=== PATIENT | female | born 1965 | race Two or more races ===

== ENCOUNTER 2021-11-17 11:48 | Outpatient (REF) | payer MEDICAID, SELFPAY ==
--- NOTE | ~2021-11-17 | MM_ITS ---
EXAMINATION: MM SCREENING DIGITAL BREAST TOMOSYNTHESIS, BILATERAL CLINICAL INFORMATION: Screening. Asymptomatic. The lifetime risk of breast cancer based on the Tyrer-Cuzick Model is 6%. COMPARISON: Mammography: 07/18/2018, 07/10/2017, 05/12/2016, 02/02/2015. TECHNIQUE: Digital breast tomosynthesis is performed in both the craniocaudal and mediolateral oblique views along with computer-aided detection (CAD). Synthesized 2D images are generated from the tomosynthesis. FINDINGS: There are scattered areas of fibroglandular density (ACR BI-RADS breast composition Category b). Breast tissue composition is slightly decreased overall from prior exams. There is no architectural abnormality or abnormal calcification. Macrolobulated mass posterior 6:00 right breast and small oval nodule central 6:00 right breast are stable. No developing density. The axilla and skin contours are unremarkable. MM/MM tomosynthesis screening BI IMPRESSION: No significant changes from prior studies ASSESSMENT: BI-RADS 2: Benign RECOMMENDATION: Routine annual mammography screening. This patient's information was entered into a reminder system with a target due date for their next mammogram.
== END 2021-11-17 11:49 | disposition home or self-care (01) ==
LOC: HO.MAMMO 11:48
PROVIDERS: Visit Provider Registered Nurse
DX: Z12.31 Encounter for screening mammogram for malignant neoplasm of breast (principal)
CPT/HCPCS: 77063; 77067

== ENCOUNTER 2022-11-23 11:10 | Outpatient (REF) | payer MEDICAID, SELFPAY ==
--- NOTE | ~2022-11-23 | MM_ITS ---
EXAMINATION: MM SCREENING DIGITAL BREAST TOMOSYNTHESIS, BILATERAL CLINICAL INFORMATION: Screening. Asymptomatic. The lifetime risk of breast cancer based on the Tyrer-Cuzick Model is 5%. COMPARISON: Mammography: 11/17/2021, 07/18/2018, 07/10/2017, 05/12/2016 TECHNIQUE: Digital breast tomosynthesis is performed in both the craniocaudal and mediolateral oblique views along with computer-aided detection (CAD). Synthesized 2D images are generated from the tomosynthesis. FINDINGS: There are scattered areas of fibroglandular density (ACR BI-RADS breast composition Category b). Parenchymal pattern is similar to prior studies and there is no developing density or interval mass or architectural abnormality. No abnormal calcifications. The macrolobulated smooth nodule posterior 6:00 right breast is stable. Smaller oval satellite nodule central 6:00 right breast appears decreased. The axilla and skin contours are unremarkable. No significant changes. MM/MM tomosynthesis screening BI IMPRESSION: No significant changes from prior exams. ASSESSMENT: BI-RADS 2: Benign RECOMMENDATION: Routine annual mammography screening. This patient's information was entered into a reminder system with a target due date for their next mammogram.
== END 2022-11-23 11:11 | disposition home or self-care (01) ==
LOC: HO.MAMMO 11:10
PROVIDERS: Visit Provider Registered Nurse
DX: Z12.31 Encounter for screening mammogram for malignant neoplasm of breast (principal)
CPT/HCPCS: 77063; 77067

== ENCOUNTER 2024-01-11 08:36 | Outpatient (REF) | payer MEDICAID, SELFPAY | END 2024-01-11 08:37 | disposition home or self-care (01) | LOC: HO.MAMMO 08:36 | PROVIDERS: PCP Registered Nurse; Visit Provider Registered Nurse | DX: Z12.31 Encounter for screening mammogram for malignant neoplasm of breast (principal) | CPT/HCPCS: 77063; 77067 ==

== ENCOUNTER → 2024-01-11 09:00 | Outpatient (BNV) | payer MEDICAID, SELFPAY | PROVIDERS: PCP Registered Nurse; Visit Provider Radiology Diagnostic Radiology | DX: Z12.31 Encounter for screening mammogram for malignant neoplasm of breast (principal) | CPT/HCPCS: 77063; 77067 ==

== ENCOUNTER 2024-04-24 10:06 | Outpatient (AMB) | payer MEDICAID, SELFPAY ==
[2024-04-24 10:12] VITALS: BP 111/62; PULSE 73; O2SAT 100; BMI 24.0
--- NOTE | 2024-04-24 10:12 | MHC.OFFVIS ---
Vital Signs 04/24/24 10:12 Height 5 ft 3 in Weight 135 lb 9.349 oz BMI 24.0 BP 111/62 Blood Pressure Location Lt brachial Position Sitting Pulse 73 Pulse Source Doppler Pulse Oximetry (%) 100 Oxygen Delivery Method Room Air Intake Visit Reasons: COPD Medical Director Required: Yes Medical Director Name: Antonia Parker Kevin Allergies No Known Allergies Allergy (Verified 04/24/24 10:18) HPI HPI COPD: Details: 58-year-old lady, lifetime nonsmoker, with significant secondhand smoke exposure and underlying asthma referred for evaluation management. Patient states that she has been using Advair and Spiriva Respimat with suboptimal control of his symptoms. She complains of intermittent dyspnea on exertion. She denies underlying family history of lung disease. 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 She denies experiencing environmental allergies. [facility] Social History Household Members: Spouse Alcohol intake: never Patient Tobacco Use Status: Never used Tobacco Review of Systems Const Denies daytime sleepiness, Denies excessive sweating, Denies fatigue, Denies fever(s), Denies lethargy, Denies malaise, Denies night sweats, Denies snoring and Denies weight loss Eyes Denies blurry vision and Denies itchy eyes ENT Denies nasal congestion, Denies post nasal drip, Denies sinus pain, Denies sinus pressure and Denies other ( Thrush) Card Denies chest pain, Denies pedal edema, Denies dyspnea, Denies orthopnea and Denies paroxysmal nocturnal dyspnea Resp Denies cough, Denies hemoptysis, Denies excessive phlegm production, Denies dyspnea, Denies snoring and Denies wheezing GI Denies abdominal pain and Denies heartburn Musc Denies myalgias, Denies arthralgias and Denies joint swelling Skin/Breast Denies rash Neuro Denies memory loss and Denies seizure-like activity Psych Denies abnormal sleep pattern, Denies anxiety and Denies memory loss Endo Denies excessive sweating, Denies fatigue and Denies heat intolerance Xavier/Lymph Denies easy bruising Aller/Immun Denies itchy eyes, Denies seasonal rhinorrhea and Denies wheezing Physical Exam Vital Signs: Last Vital Signs Pulse 73 04/24/24 10:12 BP 111/62 04/24/24 10:12 Pulse Ox 100 04/24/24 10:12 Oxygen Delivery Method Room Air 04/24/24 10:12 BMI result Body Mass Index 24.0 Const General: no acute distress and alert Nutritional Appearance: not obese Orientation/consciousness: Other orientation findings ( oriented) HEENT Head: Yes atraumatic Eyes General: appearance normal, both eyes and all related structures Sclerae: sclerae normal EOM: EOMs intact bilaterally Neck Neck: Yes supple Lymphatic: no lymphadenopathy noted Resp Effort & Inspection: normal respiratory effort and no use of accessory muscles Auscultation: clear to auscultation bilaterally Cardio Rate: regular rate Rhythm: regular rhythm Heart sounds: no gallops, no murmurs and no rubs Skin General skin exam: other ( warm) Extrem General: No clubbing, No cyanosis and No edema Assessment & Plan Assessment & Plan (1) Asthma-COPD overlap syndrome: Code(s): J44.89 - Other specified chronic obstructive pulmonary disease Category: Medical Plan: Likely underlying asthma/COPD overlap syndrome with suboptimal control on acute using regimen including Spiriva Respimat, Advair, and albuterol MDI/nebs. Will obtain full PFT. (2) Dyspnea on exertion: Code(s): R06.09 - Other forms of dyspnea Category: Medical Plan: Unclear etiology at this time, may have multifactorial origin. Will proceed with initial pulmonary evaluation, however will consider further cardiac evaluation if initial workup is unrevealing. Orders: Orders XR chest 2V Today J45.909 - Unspecified asthma, uncomplicated PFT pulmonary function test Today J45.909 - Unspecified asthma, uncomplicated Coding Level of Care Code New Pt Level 4 (59792) Diagnoses Asthma-COPD overlap syndrome J44.89 Dyspnea on exertion R06.09
== END 2024-04-24 10:36 | disposition home or self-care (01) ==
PROVIDERS: PCP Registered Nurse; Referring Provider Registered Nurse; Visit Provider Internal Medicine Pulmonary Disease
DX: J44.89 Other specified chronic obstructive pulmonary disease (principal); R06.09 Other forms of dyspnea
CPT/HCPCS: 99204

== ENCOUNTER 2024-04-24 10:06 | Outpatient (REF) | payer MEDICAID, SELFPAY ==
--- NOTE | ~2024-04-24 | XR_ITS ---
EXAMINATION: XR CHEST CLINICAL INFORMATION: Unspecified asthma COMPARISON: 08/25/2016 TECHNIQUE: 2 views of the chest were obtained. FINDINGS: The lungs are well-inflated. Dextroscoliosis of the thoracolumbar spine with multilevel degenerative changes. Heart size within normal limits. There is no gross pneumothorax. No pleural effusion. No focal consolidation. XR/XR chest 2V IMPRESSION: No evidence of pneumonia. Electronically signed by: Elizabeth Salinas MD 05/13/2024 10:19 AM EDT
== END 2024-04-24 10:07 | disposition home or self-care (01) ==
LOC: HO.XRAY 10:06
PROVIDERS: PCP Registered Nurse; Referring Provider Registered Nurse; Visit Provider Internal Medicine Pulmonary Disease
DX: J44.89 Other specified chronic obstructive pulmonary disease (principal); R06.09 Other forms of dyspnea
CPT/HCPCS: 71046; 99202

== ENCOUNTER 2024-05-15 18:38 | Outpatient (REF) | payer MEDICAID, SELFPAY ==
[2024-05-17 16:47] LABS: HPV mRNA E6/E7 Not Detected (Not Detected)
[2024-05-21 12:11] LABS: C. trachomatis RNA TMA NOT DETECTED; N. gonorrhoeae RNA TMA NOT DETECTED
[2024-05-30 12:30] LABS: Trichomonas (NAAT) NOT DETECTED
== END 2024-05-15 18:39 | disposition home or self-care (01) ==
LOC: HO.HHCLNP 18:38
PROVIDERS: Visit Provider Advanced Practice Midwife
DX: Z12.4 Encounter for screening for malignant neoplasm of cervix (principal); Z11.3 Encounter for screening for infections with a predominantly sexual mode of transmission
CPT/HCPCS: 36415; 87491; 87591; 87624; 87661; 88175

== ENCOUNTER → 2024-06-19 10:17 | Outpatient (BNVA) | payer MEDICAID, SELFPAY | PROVIDERS: PCP Registered Nurse; Visit Provider Internal Medicine Pulmonary Disease ==

== ENCOUNTER 2024-07-24 09:23 | Outpatient (REF) | payer MEDICAID, SELFPAY ==
--- NOTE | 2024-07-24 09:29 | PFT_ITS ---
Flows: FEV1: 75 % of predicted at 1.85 L FVC: 95 % of predicted at 2.97 L FEV1/FVC: 62 % Bronchodilator response: Absent Volumes: Total lung capacity: 101 % of predicted at 5.02 L Residual volume: 127 % of predicted at 2.05 L Slow vital capacity: 88 % of predicted at 2.97 L Expiratory reserve volume: 68 % of predicted at 0.57 L Diffusion capacity: Normal Impression: Moderate obstructive ventilatory defect with no bronchodilator response. Increased residual volume suggests air trapping. MTDD
[2024-07-24 11:54] VITALS: PULSE 77; O2SAT 99
== END 2024-07-24 09:24 | disposition home or self-care (01) ==
LOC: HO.RESP 09:23
PROVIDERS: PCP Registered Nurse; Visit Provider Internal Medicine Pulmonary Disease
DX: J45.909 Unspecified asthma, uncomplicated (principal)
CPT/HCPCS: 94010; 94640; 94727; 94729

== ENCOUNTER → 2024-07-24 09:29 | Outpatient (BNV) | payer MEDICAID, SELFPAY | PROVIDERS: PCP Registered Nurse; Visit Provider Internal Medicine Pulmonary Disease | DX: J45.909 Unspecified asthma, uncomplicated (principal) | CPT/HCPCS: 94060; 94727; 94729 ==

== ENCOUNTER 2024-08-01 09:50 | Outpatient (AMB) | payer MEDICAID, SELFPAY ==
--- NOTE | 2024-08-01 09:58 | A.OFFVIS_ITS ---
Vital Signs 08/01/24 09:59 Height 5 ft 3 in Weight 137 lb 12.623 oz BMI 24.4 BP 138/72 Blood Pressure Location Rt brachial Position Sitting Pulse 76 Pulse Source Doppler Pulse Oximetry (%) 98 Oxygen Delivery Method Room Air Intake Visit Reasons: Asthma Deputy Sheriff Chief Required: Yes Deputy Sheriff Chief Name: Antonia Parker Coy Marcial Allergies No Known Allergies Allergy (Verified 08/01/24 10:01) HPI HPI Asthma: Details: 58-year-old lady, lifetime nonsmoker, with significant secondhand smoke exposure and underlying asthma referred for evaluation management. Patient states that she has been using Advair and Spiriva Respimat with reasonable control of her symptoms. She complains of intermittent dyspnea on exertion. She denies underlying family history of lung disease. 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 She denies experiencing environmental allergies. As last office visit patient completed her pulmonary function test showed underlying moderate COPD. She denies any recent exacerbations. [facility] Social History Household Members: Spouse Alcohol intake: never Patient Tobacco Use Status: Never used Tobacco Review of Systems Const Denies daytime sleepiness, Denies excessive sweating, Denies fatigue, Denies fever(s), Denies lethargy, Denies malaise, Denies night sweats, Denies snoring and Denies weight loss Eyes Denies blurry vision and Denies itchy eyes ENT Denies nasal congestion, Denies post nasal drip, Denies sinus pain, Denies sinus pressure and Denies other ( Thrush) Card Denies chest pain, Denies pedal edema, Denies dyspnea, Denies orthopnea and Denies paroxysmal nocturnal dyspnea Resp Denies cough, Denies hemoptysis, Denies excessive phlegm production, Denies dyspnea, Denies snoring and Denies wheezing GI Denies abdominal pain and Denies heartburn Musc Denies myalgias, Denies arthralgias and Denies joint swelling Skin/Breast Denies rash Neuro Denies memory loss and Denies seizure-like activity Psych Denies abnormal sleep pattern, Denies anxiety and Denies memory loss Endo Denies excessive sweating, Denies fatigue and Denies heat intolerance Xavier/Lymph Denies easy bruising Aller/Immun Denies itchy eyes, Denies seasonal rhinorrhea and Denies wheezing Physical Exam Vital Signs: Last Vital Signs Pulse 76 08/01/24 09:59 BP 138/72 08/01/24 09:59 Pulse Ox 98 08/01/24 09:59 Oxygen Delivery Method Room Air 08/01/24 09:59 BMI result Body Mass Index 24.4 Const General: no acute distress and alert Nutritional Appearance: not obese Orientation/consciousness: Other orientation findings ( oriented) HEENT Head: Yes atraumatic Eyes General: appearance normal, both eyes and all related structures Sclerae: sclerae normal EOM: EOMs intact bilaterally Neck Neck: Yes supple Lymphatic: no lymphadenopathy noted Resp Effort & Inspection: normal respiratory effort and no use of accessory muscles Auscultation: clear to auscultation bilaterally Cardio Rate: regular rate Rhythm: regular rhythm Heart sounds: no gallops, no murmurs and no rubs Skin General skin exam: other ( warm) Extrem General: No clubbing, No cyanosis and No edema Assessment & Plan Assessment & Plan (1) Asthma-COPD overlap syndrome: Code(s): J44.89 - Other specified chronic obstructive pulmonary disease Category: Medical Plan: Results of pulmonary function test reviewed, underlying moderate asthma/COPD overlap syndrome now reasonably controlled on current regimen of high-dose Advair and Spiriva with albuterol MDI/nebs as needed. Continue current regimen. Coding Level of Care Code Est Pt Level 3 (22111) Diagnoses Asthma-COPD overlap syndrome J44.89
[2024-08-01 09:59] VITALS: BP 138/72; PULSE 76; O2SAT 98; BMI 24.4
== END 2024-08-01 10:11 | disposition home or self-care (01) ==
PROVIDERS: PCP Registered Nurse; Visit Provider Internal Medicine Pulmonary Disease
DX: J44.89 Other specified chronic obstructive pulmonary disease (principal)
CPT/HCPCS: 99213

== ENCOUNTER → 2024-08-01 09:50 | Outpatient (BNVA) | payer MEDICAID, SELFPAY | PROVIDERS: PCP Registered Nurse; Visit Provider Internal Medicine Pulmonary Disease | DX: J44.89 Other specified chronic obstructive pulmonary disease (principal) | CPT/HCPCS: 99212 ==

== ENCOUNTER 2025-03-07 10:33 | Outpatient (REF) | payer MEDICAID, SELFPAY ==
--- OUTSIDE RECORDS SUMMARY | 2025-03-07 11:04 | XMS_ITS | Encounter Summary ---
Author Organization [employer] Address [address] [facility] [address] [place] [address] Care Team Providers Care Bonding Supervisor Name Role Phone Mirella Morales Primary Care Provider [phone] Encounter Details Date Type Department Care Team (Late Contact Info) Description 01/02/[address] [facility] [address] [place], [place] [phone] Mirella Morales FNP [address] [place], [place] [phone] Social History Tobacco Use Types Packs/Day Years Used Date Smoking Tobacco: Never Assessed Comments Unknown Sex and Gender Information Value Date Recorded Sex Assigned at Female 06/20/2022 10:16 AM EDT Legal Sex Female 10:16 AM EDT Gender Identity Female 06/20/2022 10:16 AM EDT Sexual Orientation Straight 06/20/2022 10 :16 AM EDT COVID-19 Exposure Response Date Recorded In the last 10 days, have yo u been in contact with someone who was confirmed or suspected to have Coronavirus/COVID-19? No / Unsure 01/02/2023 12:44 PM EDT documented as of this encounter Plan of Treatment Upcoming Encounters Date Type Department Care Team (Late st Contact Info) Description 05/07/2025 9:00 AM EDT Office Visit [facility] [address] [place], [place] [phone] Mirella Morales FNP [address] [place], [place] [phone] documented as of this encounter Procedures Procedure Name Priority Date/Time Associated Diagnosis Comments HM PAP/HPV Routine 09/05/2018 12:00 AM EST documented in this encounter Results * Hm Pap Smear (09/05/2018 12:00 AM EST) us Historical Provider HEALTH MAINTENANCE Final Result documented in this encounter Visit Diagnoses Not on filedocumented in this encounter Care Teams Bonding Supervisor Relationship Specialty Start Date End Date Mirella Morales FNP [address] [place] [phone] PCP - General Family Medicine 06/11/21 documented as of this encounter
== END 2025-03-07 10:34 | disposition home or self-care (01) ==
LOC: HO.MAMMO 10:33
PROVIDERS: PCP Registered Nurse; Visit Provider Registered Nurse
DX: Z12.31 Encounter for screening mammogram for malignant neoplasm of breast (principal)
CPT/HCPCS: 77063; 77067

== ENCOUNTER → 2025-03-07 11:15 | Outpatient (BNV) | payer MEDICAID, SELFPAY | PROVIDERS: PCP Registered Nurse; Visit Provider Internal Medicine | DX: Z12.31 Encounter for screening mammogram for malignant neoplasm of breast (principal) | CPT/HCPCS: 77063; 77067 ==

== ENCOUNTER 2025-03-20 08:36 | Outpatient (REF) | payer MEDICAID, SELFPAY ==
--- OUTSIDE RECORDS SUMMARY | 2025-03-20 08:45 | XMS_ITS | Encounter Summary ---
Author Organization [employer] Address [address] [facility] [address] [place] [address] Care Team Providers Care Intelligence Intern Name Role Phone Mirella Morales Primary Care Provider [phone] Encounter Details Date Type Department Care Team (Late Contact Info) Description 01/02/2023 Abstract [facility] [address] [place], [place] [phone] Mirella Morales FNP [address] [place], [place] [phone] Social History Tobacco Use Types Packs/Day Years [...] Description 05/07/2025 9:00 AM EDT Office Visit [facility] [address] [place], [place] [phone] Mirella Morales FNP [address] [place], [place] [phone] documented as of this encounter Procedures Procedure Name Priority Date/Time Associated Diagnosis Comments HM PAP/HPV Routine 09/05/2018 12:00 AM EST documented in this encounter Results * Hm Pap Smear (09/05/2018 12:00 AM EST) us Historical Provider HEALTH MAINTENANCE Final Result documented in this encounter Visit Diagnoses Not on filedocumented in this encounter Care Teams Intelligence Intern Relationship Specialty Start Date End Date Mirella Morales FNP [address] [place] [id number] PCP - General Family Medicine 06/11/21 documented as of this encounter
[2025-03-20 11:31] LABS: Hemoglobin A1C 110.6743 umol/L; Total Hemoglobin (HGBA1C) 3557.4263 umol/L
[2025-03-20 11:36] LABS: Anion Gap 11 (12-20); Blood Urea Nitrogen 11 mg/dL (9-16); Calcium 9.2 mg/dL (8.4-10.2); Carbon Dioxide 27 mmol/L (22-29); Chloride 108 mmol/L (96-108); Cholesterol 135 mg/dL (<200); Estimated Glomerular Filt Rate > 60; HDL Cholesterol 40 mg/dL (>40); Magnesium 2.1 mg/dL (1.6-2.6); Potassium 4.1 mmol/L (3.3-5.1); Sodium 142 mmol/L (135-145); Triglycerides 83 mg/dL (<150)
[2025-03-20 12:08] LABS: Folate 12.3 ng/mL (> or = 4.0); Vitamin B12 392 pg/mL (200-900)
== END 2025-03-20 08:37 | disposition home or self-care (01) ==
LOC: HO.HHCL 08:36
PROVIDERS: PCP Registered Nurse; Visit Provider Registered Nurse
DX: R20.0 Anesthesia of skin (principal); R20.2 Paresthesia of skin; Z00.00 Encounter for general adult medical examination without abnormal findings
CPT/HCPCS: 36415; 80048; 80061; 82607; 82746; 83036; 83735; 84443

== ENCOUNTER 2025-05-07 09:40 | Outpatient (REF) | payer MEDICAID, SELFPAY ==
--- NOTE | ~2025-05-07 | XR_ITS ---
EXAMINATION: XR SHOULDER 2 OR MORE VIEWS LEFT HISTORY: PAIN COMPARISON: There are no prior studies available for comparison. FINDINGS: Four views of the left shoulder are submitted. Osseous mineralization is normal. There is no fracture or dislocation. The glenohumeral and acromioclavicular joint spaces are preserved. The soft tissues are unremarkable. XR/XR shoulder LT min 2V IMPRESSION: Unremarkable examination of the left shoulder. Electronically signed by: Niraj Castorena MD 05/07/2025 10:02 AM EDT
--- OUTSIDE RECORDS SUMMARY | 2025-05-07 09:00 | XMS_ITS | Encounter Summary ---
Author Organization [employer] Address [address] [facility] [address] [place] [address] Care Team Providers Care Gem Carver Name Role Phone Mirella Morales Primary Care Provider [phone] Encounter Details Date Type Department Care Team (Late st Contact Info) Description 05/07/2025 9:00 AM EDT Office Visit [facility] [address] [facility] [place] [address] Mirella Morales FNP [address] [place], [place] [phone] Numbness and tingling of both legs (Primary Dx); Healthcare maintenance; Chronic left shoulder pain Social History Tobacco Use Types Packs/Day Years Used Date Smoking Tobacco: Never Passive Smoke Exposure: Never Smokeless Tobacco: Never Tobacco Cessation:Counseling Given: Not Answered Depression Answer Date Recorded Patient Health Questionnaire-9 Score 13 02/26/2025 Patient Health Questionnaire-9 Score 13 02/26/2025 Last PHQ-9: Questionnaire Data Not on file 0 02/26/2025 Housing Stability Answer Date Recorded What is your housing situation today? I have vasyl hernandez 09/04/[address] you li ve. Do you have problems with any of the following? None of the above 09/04/2024 Food Insecurity Answer Date Recorded Within the past 12 months, y ou worried that your food would run out before you got money to buy more: Never True 09/04/2024 Within the past 12 months,th e food you bought just didn't last and you didn't have enough money to get more: Never True Transportation Answer Date Recorded In the past 12 months, has l ack of transportation kept you from medical appts, meetings, work or from getting things needed for daily living? No 09/04/2024 Utilities Answer Date Recorded In the past 12 months, has t he electric, gas, oil or water company threatened to shut off services in your home? No 09/04/2024 Depression Answer Date Recorded Patient Health Questionnaire-2 Score 4 02/26/2025 Internet Access Answer Date Recorded Internet Access Q1 Yes 09/04/2024 Internet Access Q2 Not on file 09/04/2024 Comments No Sex and Gender Information Value Date Recorded Sex Assigned at Female 06/20/2022 10:16 AM EDT Legal Sex Female 10:16 AM EDT Gender Identity Female 06/20/2022 10:16 AM EDT Sexual Orientation Straight 06/20/2022 10 :16 AM EDT documented as of this encounter Last Filed Vital Signs Vital Sign Reading Time Taken Comments Blood Pressure 130/62 05/07/2025 9:06 AM EDT Pulse 85 05/07/2025 9:06 AM EDT Temperature 36.1 C (96.9 F) 05/07/2025 9:06 AM EDT Respiratory Rate 20 05/07/2025 9:06 AM EDT Oxygen Saturation 98% 05/07/2025 9:06 AM EDT Inhaled Oxygen Concentration - - Weight 63 kg (139 lb) 05/07/2025 9:06 AM EDT Height 160 cm (5' 3 ) 05/07/2025 9:06 AM EDT Body Mass Index 24.62 05/07/2025 9:06 AM EDT documented in this encounter Plan of Treatment Not on file documented as of this encounter Procedures Procedure Name Priority Date/Time Associated Diagnosis Comments XR SHOULDER 2+ VIEWS LEFT Routine 05/07/2025 9:57 AM EDT Chronic left shoulder pain documented in this encounter Results * XR Shoulder 2+ Views Left (05/07/2025 9:57 AM EDT) Anatomical Region Laterality Modality Upper Extremities, Shoulder Left Radi ographic Imaging 05/07/2025 9:57 AM EDT Narrative 05/07/2025 10:05 AM EDT [address] [address] XRay Report Signed Patient: Jeaneth Youssef MR#: [id number] : 1965 Acct:[id number] Age/Sex: 59 / F ADM Date: 05/07/25 Loc: [facility] Attending Dr: Mirella RAMON Ordering Physician: Mirella Morales Date of Service: 05/07/25 Procedure(s): XR shoulder LT min 2V Accession Number(s): [id number] cc: Mirella Morales Reason for Exam: PAIN EXAMINATION: XR SHOULDER 2 OR MORE VIEWS LEFT HISTORY: PAIN COMPARISON: There are no prior studies available for comparison. FINDINGS: Four views of the left shoulder are submitted. Osseous mineralization is normal. There is no fracture or dislocation. The glenohumeral and acromioclavicular joint spaces are preserved. The soft tissues are unremarkable. XR/XR shoulder LT min 2V IMPRESSION: Unremarkable examination of the left shoulder. Electronically signed by: Niraj Castorena MD 05/07/2025 10:02 AM EDT Dictated By: Niraj Castorena MD Signed By: <Electronically signed by Niraj Castorena MD in OV> 05/07/25 1002 DD/ 0957 TD/TT: 05/07/25 0958 Clubhouse Attendant: Procedure Note Donotjetinterpreter, Tre - 05/07/2025 [place] [address] XRay Report Signed Patient: Jeaneth Youssef MMR#: [id number] : 1965Acct:[id number] Age/Sex: 59 / FADM Date: 05/07/25 Loc: [facility] Attending Dr: Mirella RAMON Ordering Physician: Mirella Morales Date of Service: 05/07/25 Procedure(s): XR shoulder LT min 2V Accession Number(s): [id number] cc: Mirella Morales Reason for Exam: PAIN EXAMINATION: XR SHOULDER 2 OR MORE VIEWS LEFT HISTORY: PAIN COMPARISON: There are no prior studies available for comparison. FINDINGS: Four views of the left shoulder are submitted. Osseous mineralization is normal. There is no fracture or dislocation. The glenohumeral and acromioclavicular joint spaces are preserved. The soft tissues are unremarkable. XR/XR shoulder LT min 2V IMPRESSION: Unremarkable examination of the left shoulder. Electronically signed by: Niraj Castorena MD 05/07/2025 10:02 AM EDT RP Dictated By: Niraj Castorena MD Signed By: <Electronically signed by Niraj Castorena MD in OV> 05/07/25 1002 DD/ TD/TT: 05/07/2558 Clubhouse Attendant: Mirella RAMON IMG XR PROCEDURES Edited Resul t - Final documented in this encounter Visit Diagnoses Diagnosis Numbness and tingling of both legs- Primary Disturbance of skin sensation Healthcare maintenance Chronic left shoulder pain Pain in joint, shoulder region documented in this encounter Additional Health Concerns Assessment Noted Time PHQ-9 Depression Total Score: 13 025 11:17 AM EDT documented as of this encounter Care Teams Gem Carver Relationship Specialty Start Date End Date Mirella Morales FNP [address] [place] [phone] PCP - General Family Medicine 06/11/21 documented as of this encounter
--- OUTSIDE RECORDS SUMMARY | 2025-05-07 11:27 | XMS_ITS | Encounter Summary ---
Author Organization [employer] Address [address] [facility] [address] [place] [address] Care Team Providers Care Senior Manufacturing Engineer Name Role Phone Mirella Morales Primary Care Provider [phone] Encounter Details Date Type Department Care Team ([facility] st Contact Info) Description 01/02/2023 Abstract [facility] [address] [place] [address] Mirella Morales FNP [address] [place], [place] [phone] Social History Tobacco Use Types Packs/Day Years [...] as of this encounter Plan of Treatment Not on file documented as of this encounter Procedures Procedure Name Priority Date/Time Associated Diagnosis Comments HM PAP/HPV Routine 09/05/2018 12:00 AM EST documented in this encounter Results * Hm Pap Smear (09/05/2018 12:00 AM EST) us Historical Provider HEALTH MAINTENANCE Final Result documented in this encounter Visit Diagnoses Not on filedocumented in this encounter Care Teams Senior Manufacturing Engineer Relationship Specialty Start Date End Date Mirella Morales FNP [address] [place] [address] PCP - General Family Medicine 06/11/21 documented as of this encounter
--- OUTSIDE RECORDS SUMMARY | 2025-05-07 11:28 | XMS_ITS | Clinical Summary ---
Demographics Address [address] [facility] [address] [place] [address] Mobile Phone Home Phone Preferred Language es Marital Status Congregational Affiliation Unknown Race Other Race Ethnic Group Unknown Author Organization [employer] Address [address] [facility] [address] [place] [address] Care Team Providers Care Advertising Inserter Name Role Phone Mirella Morales TRISTEN Primary Care Provider [phone] Allergies No known active allergies Medications traZODone (Desyrel) 50 MG tabletIndicatio ns:Insomnia, unspecified type Take 25-50 mg by mouth if needed at bedtime for sleep. 10/24/19 24 Active sertraline (Zoloft) 100 MG tablet Take 100 mg by mouth Once per day. 10/24/19 24 Active prazosin (Minipress) 5 MG capsule TAKE 1 CAPSULE BY MOUTH EVERY DAY AT BEDTIME Active tiotropium (Spiriva) 18 MCG inhalation capsuleIndicati ons:Asthma-COPD overlap syndrome (CMS/HCC) Place 1 capsule (18 mcg) into inhaler and inhale in the morning. 90 capsule 3 05/01/20 24 Active D3-1000 25 MCG (1000 UT) capsule TAKE 1 CAPSULE BY MOUTH EVERY DAY IN THE MORNING 90 capsule 1 08/19/20 24 Active cholecalciferol (Vitamin D High Potency) 25 MCG (1000 UT) capsule Take 1 capsule (25 mcg) by mouth Once per day. 90 capsule 3 08/19/20 24 Active albuterol 108 (90 Base) MCG/ACT inhalerIndicati ons:Asthma-COPD overlap syndrome (CMS/HCC) Inhale 2 puffs every 4 (four) hours if needed for wheezing or shortness of breath. 18 g 11 09/04/19 25 026 Active acetaminophen (Tylenol 8 Hour) 650 MG ER tabletIndicatio ns:Pain TAKE 1 TABLET BY MOUTH EVERY 8 HOURS NEEDED FOR PAIN OR FEVER, DO NOT BREAK, CRUSH, DISSOLVE OR CHEW 90 tablet 3 10/17/19 25 Active ibuprofen 600 MG tabletIndicatio ns:Pain TAKE 1 TABLET BY MOUTH EVERY 8 HOURS NEEDED FOR PAIN 90 tablet 1 03/07/20 25 Active loratadine (Claritin) 10 MG tabletIndicatio ns:Seasonal allergies TAKE 1 TABLET BY MOUTH EVERY MORNING 90 tablet 1 03/17/20 25 Active albuterol (2.5 MG/3ML) 0.083% nebulizer solutionIndicat ions:Asthma-BOND UNDERWRITER D overlap syndrome (CMS/HCC) INHALE 1 AMPULE USING A NEBULIZER EVERY 4 HOURS NEEDED FOR WHEEZING 90 mL 03/19/20 25 Active Diclofenac Sodium 1 % gel APPLY A THIN LAYER TOPICALLY TO AFFECTED AREA(S) OF PAIN THREE TIMES DAILY NEEDED 100 g 3 03/28/20 25 Active fluticasone-junaid meterol (Advair HFA) 230-21 MCG/ACT inhaler INHALE 2 PUFFS BY MOUTH TWICE DAILY IN THE MORNING AND AT BEDTIME, RINSE MOUTH AFTER USING. DO NOT SWALLOW 12 g 11 05/07/20 25 Active Advair HFA 230-21 MCG/ACT inhaler INHALE 2 PUFFS BY MOUTH TWICE DAILY IN THE MORNING AND AT BEDTIME, RINSE MOUTH AFTER USING. DO NOT SWALLOW 12 g 11 02/21/20 25 025 Discontinued(Re order (will not trigger notification to Pharmacy)) Active Problems Problem Noted Date Diagnosed Date Numbness and tingling of both legs 03/02/2025 Assessment & Plan (03/02/2025 4:36 PM EDT): -2-3 weeks of discomfort in BLE associated with intermittent numbness and tingling after > 10 minutes walking. Has been more physically active with the warmer weather. - Ddx: PAD vs neuropathy vs deconditioning vs lumbar radiculopathy vs other - Plan: check labs. Pending lab results, consider vascular consult/venous US w/ KRISSY vs EMG/NCS - Follow up precautions reviewed Healthcare maintenance 01/03/2024 Overview (05/07/2025): Pap: Last pap NILM, HPV neg 05/15/24. repeat in 5 years. Mammogram: BIRADS-2 on 03/07/25 Colonoscopy- referral placed October 2021. Difficulty scheduling appt, would now prefer Cologuard. Cologuard order placed 05/01/24. Re-ordered on 02/26/25 Eye exam- referral placed October 2021 Assessment & Plan (09/04/2024 7:15 AM EST): Assessment & Plan (05/05/2024 8:26 PM EDT): Pap: Last pap NILM, HPV neg Aug 2018, due Aug 2023 (pt reports they have been normal in the past) Mammogram: BIRADS-1 on 01/11/24 Colonoscopy- referral placed October 2021. Difficulty scheduling appt, would now prefer Cologuard. Cologuard order placed 05/01/24 Eye exam- referral placed October 2021 Assessment & Plan (01/06/2024 4:51 PM EDT): Pap: Last pap NILM, HPV neg Aug 2018, due Aug 2023 (pt reports they have been normal in the past) Mammogram: BIRADS-2 on 11/17/21 (upcoming appt scheduled 01/11/24) Colonoscopy- referral placed October 2021 (reports upcoming appt) Eye exam- referral placed October 2021 Asthma-COPD overlap syndrome 07/02/2012 Overview (05/05/2024): Followed by [facility] Darshan - Dr. Egan Exacerbation: 03/07/24 Treatment regimen: Advair 230-21 mcg/act, 2 puffs BID Spiriva 18 mcg daily Controller: Albuterol PRN Previous medications: -Trelegy (DC d/t insurance coverage) Assessment & Plan (09/04/2024 9:37 AM EST): -DME request for neb machine: 09/04/24 -Pending review of PFT and CXR with specialist -Reports well controlled with current regimen -Continues as above Assessment & Plan (05/05/2024 8:34 PM EDT): -Pending review of PFT and CXR with specialist -Reports well controlled with current regimen -Continues as above Assessment & Plan (04/02/2024 10:17 AM EDT): Patient was given longer course of steroids, discussed that cough may remain after finishing steroids but that she should be feeling better and improving, recommended f/up with primary provider to discuss fpc control of her COPD. Assessment & Plan (01/06/2024 4:57 PM EDT): - Not well controlled - Pt last seen in 2016 by [facility] Pulm, referral to re-establish care - Reports 1-2 exacerbations in the past year requiring prednisone, and becomes SOB after walking up one flight of stairs. - Given severity/persistence of symptoms on ICS/LABA/KATIE combination, will increase therapy to ICS/LABA/LAMA Plan: -STOP Pulmicort -STOP Combivent -START Trelegy -May use albuterol PRN Insomnia 04/17/2012 Resolved Problems Problem Noted Date Diagnosed Date Resolved Date Asthma 04/17/2012 05/01/2024 Encounters Date Type Department Care Team Description 05/07/2025 9:00 AM EDT Office Visit [facility] [address] [place] [phone] Mirella Morales FNP Numbness and tingling of both legs (Primary Dx); Healthcare maintenance; Chronic left shoulder pain 05/07/2025 Travel 05/06/2025 Telephone [facility] [address] [place] [phone] Mirella Morales FNP CHART PREP 03/28/2025 Refill [facility] [address] [place] [phone] Mirella Morales FNP 03/18/2025 Telephone [facility] [address] [place] [address] Mirella Morales FNP Cologuard Kit 03/18/2025 Refill [facility] [address] [place] [address] Mirella Morales FNP Asthma-COPD overlap syndrome (CMS/HCC) 03/16/2025 Refill [facility] [address] [place] [address] Mirella Morales FNP Seasonal allergies 03/07/2025 Orders Only [facility] [address] [place] [address] Mirella Morales FNP 03/07/2025 Refill [facility] [address] [place] [address] Mirella Morales FNP Pain 02/26/2025 10:30 AM EDT Office Visit [facility] [address] [place] [address] Mirella Morales FNP Numbness and tingling of both legs (Primary Dx); Screening for colon cancer; Healthcare maintenance 02/26/2025 Travel 02/25/2025 Telephone [facility] [address] [place] [phone] Mirella Morales FNP CHART PREP 02/20/2025 Refill [facility] [address] [place], [place] [phone] Lucy Montano MD from Last 3 Months Immunizations Immunization Administration Dates Next Due Hep B, Adolescent or Pediatric 11/15/2011,2011 Hep B, adult 04/17/2012,11/15/2011,10/19/2011 Influenza injectable quadriv alent IIV4 with preservative 06/12/2018,07/10/2017 Influenza injectable quadriv alent preservative free 01/02/2023,06/07/2021,06/17/2020,08/09 Influenza, Split (incl. andrea fied surface antigen) 06/27/2013,04/17/2012 Influenza, seasonal, injecta ble, preservative free 05/01/2024 MMR 09/14/2000 Moderna Covid-19 Vaccine 6+ Bivalent 01/02/2023 Pfizer Covid-19 Vaccine 12+ 09/04/2024, Pneumococcal Conjugate PCV 20 01/03/2024 Pneumococcal Polysaccharide PPSV23 03/17/2008 TD (adult), 2 Lf tetanus tox oid, preservative free, adsorbed 09/14/2000 Tdap 10/29/2021,06/22/2011 Social History Tobacco Use Types Packs/Day Years [...] Orientation Straight 06/20/2022 10 :16 AM EDT Last Filed Vital Signs Vital Sign Reading [...] Mass Index 24.62 05/07/2025 9:06 AM EDT Plan of Treatment Health Maintenance Due Date Last Done Comments CT Colonography 1965 Colonoscopy 1965 Colorectal Cancer Screening 1965 FIT DNA/Cologuard 1966 FIT 1966 FOBT 1965 Sigmoidoscopy 1966 Zoster Vaccines (1 of 2) 2016 Influenza Vaccine (#1) 2025 , 01/02/2023, 06/07/2021, Additional history exists Depression Monitoring 08/29/2025 02/26/2025, 025 SDOH Screening 09/04/2025 09/04/2024 Alcohol/Substance Use Screening 02/26/2026 02/26/2025 Disability Screening 02/26/2026 02/26/2025 Mammogram 03/07/2026 03/07/2025, 12/20, 11/23/2022, Additional history exists Tobacco Screening 05/07/2026 05/07/2025 Cervical Cancer Screening 05/15/2029 HPV/Cotest 05/15/2029 05/15/2024, 09/05/2018 Pap Smear 05/15/2029 05/15/2024, 09/05/2018 DTaP/Tdap/Td Vaccines (3 - Td or Tdap) 10/30/2031 10/29/2021, 06/22/2011, 09/14/2000 RSV Patients and Patients Aged 60 years or older (1 - 1-dose 75+ series) 2041 Hepatitis B Vaccines Completed 04/17/2012, 11/15/2011, 11/15/2011, Additional history exists HIV Screening Completed 01/07/2022 Hepatitis C Screening Completed 01/07/2022 Pneumococcal Vaccine: 50+ Years Completed 01/03/2024, 03/17/2008 COVID-19 Vaccine Completed 09/04/2024, , 01/02/2023, Additional history exists HIB Vaccines Aged Out No longer eligi ble based on patient's age to complete this topic HPV Vaccines Aged Out No longer eligi ble based on patient's age to complete this topic Hepatitis A Vaccines Aged Out No long er eligible based on patient's age to complete this topic IPV Vaccines Aged Out No longer eligi ble based on patient's age to complete this topic Meningococcal B Vaccine Aged Out No l onger eligible based on patient's age to complete this topic Meningococcal Vaccine Aged Out No lashawn johanna eligible based on patient's age to complete this topic RSV under 20 months Aged Out No longe r eligible based on patient's age to complete this topic Rotavirus Vaccines Aged Out No longer eligible based on patient's age to complete this topic Procedures Procedure Name Priority Date/Time Associated Diagnosis Comments XR SHOULDER 2+ VIEWS LEFT Routine 05/07/2025 9:57 AM EDT Chronic left shoulder pain TSH W/REFLEX TO FT4 Routine 03/20/2025 8 :46 AM EDT Numbness and tingling of both legs HEMOGLOBIN A1C Routine 03/20/2025 8:46 AM EDT Numbness and tingling of both legs LIPID PANEL, STANDARD Routine 03/20/2025 8:46 AM EDT Healthcare maintenance BASIC METABOLIC PANEL Routine 03/20/2025 8:46 AM EDT Numbness and tingling of both legs MAGNESIUM Routine 03/20/2025 8:46 AM EDT Numbness and tingling of both legs VITAMIN B12/FOLATE, SERUM PANEL Routine 03/20/2025 8:46 AM EDT Numbness and tingling of both legs BI MAMMOGRAM SCREENING TOMOSYNTHESIS BILATERAL Routine 03/07/2025 11:15 AM EDT THINPREP IMAGING PAP AND HPV MRNA E6/E7 Routine 05/15/2024 9:47 AM EDT ZZZ HISTORICAL HEPATITIS C AB W/REFL TO HCV RNA, QN, PCR Routine 01/07/2022 9:36 AM EDT HIV 1/2 ANTIGEN/ANTIBODY, FOURTH GENERATION W/RFL Routine 01/07/2022 9:36 AM EDT from Last 3 Months or Most Recently Relevant to Health Maintenance Results * XR Shoulder 2+ Views Left (05/07/2025 9:57 AM EDT) Anatomical Region Laterality Modality Upper Extremities, Shoulder Left Radi ographic Imaging 05/07/2025 9:57 AM EDT Narrative 05/07/2025 10:05 AM EDT [address] [address] XRay Report Signed Patient: Jeaneth Youssef MR#: [id number] : 1965 Acct:[id number] Age/Sex: 59 / F ADM Date: 05/07/25 Loc: .HHCX Attending Dr: Mirella RAMON Ordering Physician: Mirella Morales Date of Service: 05/07/25 Procedure(s): XR shoulder LT min 2V Accession Number(s): [id number] cc: Mirella Morales Reason for Exam: PAIN [...] MD in OV> 05/07/25 1002 DD/ TD/TT: 05/07/25957 Supervisor [employer] Vehicle: Procedure Note Donotuseinterpreter, Image - 05/07/[address] [address] XRay Report Signed Patient: Jeaneth Youssef MMR#: [id number] : 1965Acct:[id number] Age/Sex: 59 / FADM Date: 05/07/25 Loc: HO.HHCX Attending Dr: Mirella RAMON Ordering Physician: Mirella Morales Date of Service: 05/07/25 Procedure(s): XR shoulder LT min 2V Accession Number(s): [id number] cc: Mirella Morales Reason for Exam: PAIN [...] in OV> 05/07/25 1002 DD/ TD/TT: 05/07/2558 Supervisor [employer] Vehicle: Mirella RAMON IMG XR PROCEDURES Edited Resul t - Final * Vitamin B12/Folate, Serum Panel (03/20/2025 8:46 AM EDT) Vitamin B12 392 200 - 900 pg/mL [facility] Comment:NORMAL 200-900 PG/ML INDETERMINATE 160-199 PG/ML DEFICIENT < 160 PG/ML Folate 12.3 > or = 4.0 ng/mL [facility] Comment:Reference Values:> o r = 4.0 ng/mL< 4.0 ng/mL suggests folate deficiency Methotrexate, aminopterin and folinic acid(leucovorin) are chemotherapeutic agents whose molecularstructures are similar to folate; therefore, the Architectfolate assay cannot be used for patients using these drugs. Blood Venous blood specimen / Unknown 03/20/2025 8:46 AM EDT 03/20/2025 10:54 AM EDT us Mirella Morales WINDING INSPECTOR LAB BLOOD ORDERABLES Final Res ult Performing Organization Address [facility] de Phone Number [facility] [address] [place] [phone] * TSH W/Reflex to FT4 (03/20/2025 8:46 AM EDT) TSH reflex Free T4 1.64 0.32 - 4.0 uIU/mL [facility] Blood Venous blood specimen / Unknown 03/20/2025 8:46 AM EDT 03/20/2025 10:54 AM EDT us Mirella Morales WINDING INSPECTOR LAB BLOOD ORDERABLES Final Res ult Performing Organization Address [facility] Phone Number [facility] [address] [place] [phone] * Magnesium (03/20/2025 8:46 AM EDT) Pathologist [facility] Magnesium 2.1 1.6 - 2.6 mg/dL [facility] Blood Venous blood specimen / Unknown 03/20/2025 8:46 AM EDT 03/20/2025 10:54 AM EDT Mirella Morales WINDING INSPECTOR LAB BLOOD ORDERABLES Final Res ult Performing Organization Address [facility] Phone Number [facility] [address] [place] [phone] * Hemoglobin A1c (03/20/2025 8:46 AM EDT) Hemoglobin A1c 5.0 <6.0 % [facility] Comment:Hemoglobin A1C Refer ence Range Adults: 4.8 - 6.0 % Non diabetic: < 6.0 % Goal: < 7.0 %Additional Action Suggested: > 8.0 %Note: Hemoglobin A1c results are invalid for patients with abnormal amounts of HbF. Blood transfusions may impact the HbA1c concentration in the patient sample. Estimated Average Glucose 97 mg/dL [facility] Comment:eAG = Estimated ave rage glucose which is %A1C expressed asaverage glucose, using the formula of the P8K-XyfrrezOgezgqe Glucose study (ADAG), Diabetes Care, Vol.31,#8,Mar. 2007 Blood Venous blood specimen / Unknown 03/20/2025 8:46 AM EDT 03/20/2025 10:54 AM EDT us Mirella Morales WINDING INSPECTOR LAB BLOOD ORDERABLES Final Res ult [facility] [address] [place] [phone] * (ABNORMAL) Lipid Panel, Standard (03/20/2025 8:46 AM EDT) Triglycerides 83 <150 mg/dL [facility] Comment:Desirable Triglyceri de: less than 150 mg/dLBorderline High Triglyceride 150-199 mg/dLHigh Triglyceride: 200-499 mg/dLVery High Triglyceride: greater than or equal to 5OO mg/dL Cholesterol 135 <200 mg/dL [facility] Comment:Desirable Cholestero l: less than 200 mg/dLBorderline High Cholesterol: 200-239 mg/dLHigh Cholesterol: greater than 239 mg/dL LDL Cholesterol Calculated 79 <100 mg/dL [facility] Comment:Desirable LDL: less than 100 mg/dLNear Optimal/Above Optimal LDL: 110- 129 mg/dLBorderline High LDL: 130-159 mg/dLHigh LDL: 160-189 mg/dLVery High LDL: greater than or equal to 190 mg/dL HDL Cholesterol 40(L) >40 mg/dL [facility] Comment:Desirable HDL: great er than 40 mg/dL Note: This HDL assay may give artificially low results in patients with liver disease. Blood Venous blood specimen / Unknown 03/20/2025 8:46 AM EDT 03/20/2025 10:54 AM EDT Mirella Morales WINDING INSPECTOR LAB BLOOD ORDERABLES Final Res ult Performing Organization Address City/[facility]/ZIP Co de Phone Number [facility] [address] [place] [phone] [phone] * (ABNORMAL) Basic Metabolic Panel (03/20/2025 8:46 AM EDT) Sodium 142 135 - 145 mmol/L [facility] Potassium 4.1 3.3 - 5.1 mmol/L [facility] Comment:Slight Hemolysis.Int erpret result with caution. Chloride 108 96 - 108 mmol/L [facility] Carbon Dioxide 27 22 - 29 mmol/L [facility] Anion Gap 11(L) 12 - 20 [facility] Urea Nitrogen (BUN) 11 9 - 16 mg/dL [facility] Creatinine, Serum 0.77 0.5 - 1.4 mg/dL [facility] Estimated Glomerular Filt Rate >60 [facility] Comment:Chronic Kidney Disea se: Estimated GFR < 60 mL/min/1.37q4Udjood Kidney Disease: Estimated GFR < 15 mL/min/1.73m2 Glucose 89 60 - 115 mg/dL [facility] Calcium 9.2 8.4 - 10.2 mg/dL [facility] Blood Venous blood specimen / Unknown 03/20/2025 8:46 AM EDT 03/20/2025 10:54 AM EDT Mirella Morales WINDING INSPECTOR LAB BLOOD ORDERABLES Final Res ult [facility] [address] [place] [phone] [phone] * BI Mammogram Screening Tomosynthesis Bilateral (03/07/2025 11:15 AM EDT) Anatomical Region Laterality Modality Breast Bilateral Mammography 03/07/2025 11:1 5 AM EDT Narrative 03/17/2025 4:44 PM EDT [address] [place] [address] Mammography Report Signed Patient: Jeaneth Youssef MR#: [id number] : 1965 Acct:[id number] Age/Sex: 59 / F ADM Date: 03/07/25 Loc: HO.MAMMO Attending Dr: Mirella Morales WINDING INSPECTOR Ordering Physician: Mirella Morales Results: 2Benig n Findings Date of Service: 03/07/25 Follow Up: 1 Year From Orig inal Mammogram Procedure(s): MM tomosynthesis screening BI Accession Number(s): [id number] cc: Mirella Morales WINDING INSPECTOR EXAMINATION: MM SCREENING DIGITAL BREAST TOMOSYNTHESIS, BILATERAL CLINICAL INFORMATION: Screening. Asymptomatic. COMPARISON: Mammography: Comparison is made with available priors TECHNIQUE: Digital breast mammography with tomosynthesis is performed in both the craniocaudal and mediolateral oblique views along with computer-aided detection (CAD). FINDINGS: There are scattered areas of fibroglandular density (ACR BI-RADS breast composition Category b). Focal asymmetry lower inner right breast posterior depth stable dating back to 2018. There are no significant masses, abnormal calcifications, or other abnormalities. MM/MM tomosynthesis screening BI IMPRESSION: No mammographic evidence of malignancy. ASSESSMENT: BI-RADS BI-RADS 2 - Benign Findings RECOMMENDATION: Routine annual mammography screening. 1 year F/U This examination should not preclude the clinical evaluation of a suspicious palpable abnormality. This patient's information was entered into a reminder system with a target due date for their next mammogram. Electronically signed by: Park Flynn DO 03/17/2025 04:40 PM EDT Dictated By: Park Flynn DO Signed By: <Electronically signed by Park Flynn DO in OV> 03/17/25 1640 DD/ 1115 TD/TT: 03/07/25 1132 Supervisor [employer] Vehicle: Procedure Note Donotuseinterpreter, Image - 03/17/[address] [place] [address] Mammography Report Signed Patient: Jeaneth Youssef MMR#: [id number] : 1965Acct:[id number] Age/Sex: 59 / FADM Date: 03/07/25 Loc: HO.MAMMO Attending Dr: Mirella Morales WINDING INSPECTOR Ordering Physician: Mirella MoralesPResults: 2Benig n Findings Date of Service: 03/07/25Follow Up: 1 Year From Orig inal Mammogram Procedure(s): MM tomosynthesis screening BI Accession Number(s): [id number] cc: Mirella Morales WINDING INSPECTOR EXAMINATION: MM SCREENING DIGITAL BREAST TOMOSYNTHESIS, BILATERAL CLINICAL INFORMATION: Screening. Asymptomatic. COMPARISON: Mammography: Comparison is made with available priors TECHNIQUE: Digital breast mammography with tomosynthesis is performed in both the craniocaudal and mediolateral oblique views along with computer-aided detection (CAD). FINDINGS: There are scattered areas of fibroglandular density (ACR BI-RADS breast composition Category b). Focal asymmetry lower inner right breast posterior depth stable dating back to 2018. There are no significant masses, abnormal calcifications, or other abnormalities. MM/MM tomosynthesis screening BI IMPRESSION: No mammographic evidence of malignancy. ASSESSMENT: BI-RADS BI-RADS 2 - Benign Findings RECOMMENDATION: Routine annual mammography screening. 1 year F/U This examination should not preclude the clinical evaluation of a suspicious palpable abnormality. This patient's information was entered into a reminder system with a target due date for their next mammogram. Electronically signed by: Park Flynn DO 03/17/2025 04:40 PM EDT Dictated By: Park Flynn DO Signed By: <Electronically signed by Park Flynn DO in OV> 03/17/25 1640 DD/ 1115 TD/TT: 03/07/25 1132 Supervisor [employer] Vehicle: Mirella Morales WINDING INSPECTOR IMG BI PROCEDURES Final Result * ThinPrep Imaging Pap and HPV mRNA E6/E7 (05/15/2024 9:47 AM EDT) HPV nRNA E6/E7 Not Detected Not Detected [facility] Comment:Methodology: Transcr iption-Mediated AmplificationThis assay detects E6/E7 viral messenger RNA (mRNA) from 14high-risk HPV types (16,18,31,33,35,39,45,51,52,56,58,59,66,68).Cervical sources are required for HPV testing.If a vaginal source from a patient who has had atotal hysterectomy with removal of cervix wassubmitted, please contact the testing laboratoryfor alternative testing options.For additional information, please refer [email or web address]/faq/MIQ854y8(This link if provided for information/educational purposes only.)THIS TEST WAS PERFORMED AT:[employer] [address] [id number] VILLALPANDO MD SOURCE: SEE NOTE [facility] Comment:Cervix Report Status: [facility] Clinical Information: SEE NOTE [facility] Comment:None given LMP: SEE NOTE [facility] Comment:NONE GIVEN Prev. PAP: SEE NOTE [facility] Comment:NONE GIVEN Prev. BX: SEE NOTE [facility] Comment:NONE GIVEN Statement Of Adequacy: SEE NOTE [facility] Comment:Satisfactory for joaquin luation.Endocervical/transformation zone componentpresent. General Categorization: [facility] Interpretation/Result: SEE NOTE [facility] Comment:Cytology Results: Ne gative for intraepitheliallesion or malignancy. Cytology Comment SEE NOTE [facility] Comment:This Pap test has be en evaluated with computerassisted technology. Plant Utilities Engineer: SEE NOTE [facility] Comment:YP, CT(ASCP)CT papa ibarra location: [address] [address] Review Plant Utilities Engineer: [facility] Pathologist [facility] PAP Infection [facility] See Note SEE [facility] Comment:EXPLANATORY NOTE:The Pap is a screening test for cervical cancer. It isnot a diagnostic test and is subject to false negativeand false positive results. It is most reliable when asatisfactory sample, regularly obtained, is submittedwith relevant clinical findings and history, and whenthe Pap result is evaluated along with historic andcurrent clinical information. 05/15/2024 9:47 AM EDT 05/15/2024 6:39 PM EDT Narrative [facility] - 05/21/2024 12:09 PM EDT SEE SCANNED RESULTS IN EMRCERVIX Nely Quan CN LAB PATHOLOGY ORDERABLES Final Result [facility] [address] [place] [address] [phone] * HEPATITIS C AB W/REFL TO HCV RNA, QN, PCR (01/07/2022 9:36 AM EDT) HEPATITIS C ANTIBODY NON-REACT MAC NON-REACT MAC [facility] INDEX 0.06 <1.00 [facility] Comment: HCV antibody was non-reactive. There is no laboratory evidence of HCV infection. In most cases, no further action is required. However, if recent HCV exposure is suspected, a test for HCV RNA (test code 72602) is suggested. For additional information please refer to http://education.[employer]/faq/NDA06o3 (This link is being provided for informational/ educational purposes only.) 01/07/2022 9:36 AM EDT us Mirella Morales WINDING INSPECTOR HISTORICAL/NON ORDERABLE LABS Final Result [facility] [address] * HIV 1/2 ANTIGEN/ANTIBODY,FOURTH GENERATION W/RFL (01/07/2022 9:36 AM EDT) HIV-1/2 ANTIGEN AND ANTIBODIES, 4TH GENERATION W/ REFLEX NON-REACT MAC NON-REACT MAC [facility] Comment: HIV-1 antigen and HIV-1/HIV-2 antibodies were not detected. There is no laboratory evidence of HIV infection. PLEASE NOTE: This information has been disclosed to you from records whose confidentiality may be protected by state law. If your state requires such protection, then the state law prohibits you from making any further disclosure of the information without the specific written consent of the person to whom it pertains, or as otherwise permitted by law. A general authorization for the release of medical or other information is NOT sufficient for this purpose. For additional information please refer to http://education.[employer]/faq/NQJ366 (This link is being provided for informational/ educational purposes only.) The performance of this assay has not been clinically validated in patients less than 2 years old. 01/07/2022 9:36 AM EDT us Mirella Morales WINDING INSPECTOR LAB BLOOD ORDERABLES Final Res ult [facility] On license of [facility] [address] from Last 3 Months or Most Recently Relevant to Health Maintenance Insurance [facility] C3 Care Teams Advertising Inserter Relationship Specialty Start Date End Date Mirella Morales FNP [address] [place] [address] PCP - General Family Medicine 06/11/21
--- OUTSIDE RECORDS SUMMARY | 2025-05-07 11:28 | XMS_ITS | Encounter Summary ---
Demographics Address [address] [facility] [address] [place] [address] Mobile Phone Home Phone Preferred Language es Marital Status Restorationism Affiliation Unknown Race Other Race Ethnic Group Unknown Author Organization [employer] Address [address] [facility] [address] [address] [place] [address] Care Team Providers Care Census Enumerator Name Role Phone Mirella Morales DENTIST/OWNER Primary Care Provider [phone] Encounter Details Date Type Department Care Team (Latest Contact Info) Description 05/07/2025 Travel Social History Tobacco Use Types Packs/Day Years Used Date Smoking Tobacco: Never Passive Smoke Exposure: Never Smokeless Tobacco: Never Depression Answer Date Recorded Patient Health Questionnaire-9 Score 13 02/26/2025 Patient Health Questionnaire-9 Score 13 02/26/2025 Last PHQ-9: Questionnaire Data Not on file 0 02/26/2025 Housing Stability Answer Date Recorded What is your housing situation today? I have vasyl mary 09/04/[address] you li [...] AM EDT documented as of this encounter Plan of Treatment Not on file documented as of this encounter Visit Diagnoses Not on filedocumented in this encounter Additional Health Concerns Assessment Noted Time PHQ-9 Depression Total Score: 13 025 11:17 AM EDT documented as of this encounter Care Teams Census Enumerator Relationship Specialty Start Date End Date Mirella Morales FNP [address] [place] [address] PCP - General Family Medicine 06/11/21 documented as of this encounter
--- OUTSIDE RECORDS SUMMARY | 2025-05-07 11:28 | XMS_ITS | Encounter Summary ---
Author Organization [employer] Address [address] [facility] 7t [place] [address] Care Team Providers Care Laboratory Supervisor Name Role Phone Mirella Morales Primary Care Provider [phone] Reason for Visit * Reason Comments Med Refill Encounter Details Date Type Department Care Team ([facility] st Contact Info) Description 06/06/2023 Refill [facility] MED[facility] [address] [place] [address] Mirella Morales FNP [address] [place], [place] [phone] Social History Tobacco Use Types Packs/Day Years [...] on filedocumented in this encounter Care Teams Laboratory Supervisor Relationship Specialty Start Date End Date Mirella Morales FNP [address] [place] [address] PCP - General Family Medicine 06/11/21 documented as of this encounter
--- OUTSIDE RECORDS SUMMARY | 2025-05-07 11:28 | XMS_ITS | Encounter Summary ---
Author Organization [employer] Address [address] [facility] 7t [place] [address] Care Team Providers Care Infantry Officer Name Role Phone Mirella Morales Primary Care Provider [phone] Reason for Visit * Reason Comments Med Refill Encounter Details Date Type Department Care Team ([facility] st Contact Info) Description 03/15/2024 Refill [facility] [address] [place], [place] [phone] Jeremiah Cox MD [address] [place], [place] [phone] COPD with acute exacerbation (CMS/HCC) Social History Tobacco Use Types Packs/Day Years Used Date Smoking Tobacco: Never Passive Smoke Exposure: Current Smokeless Tobacco: Never Depression Answer Date Recorded Patient Health Questionnaire-9 Score 8 01/03/2024 Patient Health Questionnaire-9 Score 8 01/03/2024 Last PHQ-9: Questionnaire Data Not on file 0 01/03/2024 Depression Answer Date Recorded Patient Health Questionnaire-2 Score 2 01/03/2024 Comments Unknown Sex and Gender Information Value Date Recorded Sex Assigned at Female 06/20/2022 10:16 AM EDT Legal Sex Female 10:16 AM EDT Gender Identity Female 06/20/2022 10:16 AM EDT Sexual Orientation Straight 06/20/2022 10 :16 AM EDT documented as of this encounter Plan of Treatment Not on file documented as of this encounter Visit Diagnoses Diagnosis COPD with acute exacerbation (CMS/HCC) documented in this encounter Additional Health Concerns Assessment Noted Time PHQ-9 Depression Total Score: 8 01/03/20 24 12:18 PM EDT documented as of this encounter Care Teams Infantry Officer Relationship Specialty Start Date End Date Mirella Morales FNP [address] [place] [address] PCP - General Family Medicine 06/11/21 documented as of this encounter
--- OUTSIDE RECORDS SUMMARY | 2025-05-07 11:28 | XMS_ITS | Encounter Summary ---
Author Organization [employer] Address [address] [facility] 7t [place] [address] Care Team Providers Care Contracting Engineer Name Role Phone Mirella Morales Primary Care Provider [phone] Encounter Details Date Type Department Care Team ([facility] st Contact Info) Description 01/02/2023 Orders Only [facility] MED & PEDS [address] [place] [address] Antonia Paz LPN Social History Tobacco Use Types Packs/Day Years [...] on filedocumented in this encounter Care Teams Contracting Engineer Relationship Specialty Start Date End Date Mirella Morales FNP [address] [place] [address] PCP - General Family Medicine 06/11/21 documented as of this encounter
--- OUTSIDE RECORDS SUMMARY | 2025-05-07 11:28 | XMS_ITS | Encounter Summary ---
Demographics Address [address] [facility] [address] [place] [address] Mobile Phone Home Phone Preferred Language es Marital Status Scientologist Affiliation Unknown Race Other Race Ethnic Group Unknown Author Organization [employer] Address [address] [facility] 7t [place] [address] Care Team Providers Care Corn Breeder Name Role Phone Mirella Morales VEGETABLE COOK Primary Care Provider [phone] Encounter Details Date Type Department Care Team (Late st Contact Info) Description 11/21/2022 Orders Only [facility] MED & PEDS [address] [place] [address] Antonia Paz LPN Social History Tobacco Use [...] Procedure Name Priority Date/Time Associated Diagnosis Comments BI MAMMOGRAM SCREENING TOMOSYNTHESIS BILATERAL Routine 11/23/2022 11:35 AM EDT documented in this encounter Results * BI Mammogram Screening Tomosynthesis Bilateral (11/23/2022 11:35 AM EDT) Anatomical Region Laterality Modality Breast Bilateral Mammography 11/23/2022 11:3 5 AM EDT Narrative 11/24/2022 2:16 PM EDT [facility] [place] [address] Mammography Report Signed Patient: Jeaneth Youssef MR#: [id number] : 1965 Acct:[id number] Age/Sex: 57 / F ADM Date: 11/23/22 Loc: HO.MAMMO Attending Dr: Mirella Morales VEGETABLE COOK Ordering Physician: Mirella Morales Results: 2Benig n Findings Date of Service: 11/23/22 Follow Up: 1 Year From Orig inal Mammogram Procedure(s): MM tomosynthesis screening BI Accession Number(s): [id number] cc: Mirella Morales VEGETABLE COOK EXAMINATION: MM SCREENING DIGITAL BREAST TOMOSYNTHESIS, BILATERAL CLINICAL INFORMATION: Screening. Asymptomatic. The lifetime risk of breast cancer based on the Tyrer-Cuzick Model is 5%. COMPARISON: Mammography: 11/17/2021, 07/18/2018, 07/10/2017, 05/12/2016 TECHNIQUE: Digital breast tomosynthesis is performed in both the craniocaudal and mediolateral oblique views along with computer-aided detection (CAD). Synthesized 2D images are generated from the tomosynthesis. FINDINGS: There are scattered areas of fibroglandular density (ACR BI-RADS breast composition Category b). Parenchymal pattern is similar to prior studies and there is no developing density or interval mass or architectural abnormality. No abnormal calcifications. The macrolobulated smooth nodule posterior 6:00 right breast is stable. Smaller oval satellite nodule central 6:00 right breast appears decreased. The axilla and skin contours are unremarkable. No significant changes. MM/MM tomosynthesis screening BI IMPRESSION: No significant changes from prior exams. ASSESSMENT: BI-RADS 2: Benign RECOMMENDATION: Routine annual mammography screening. This patient's information was entered into a reminder system with a target due date for their next mammogram. Dictated By: Deion Vann MD Signed By: <Electronically signed by Deion Vann MD in OV> 11/24/22 1414 DD/ 1135 TD/TT: Credentials Specialist: PEREZ Procedure Note Donotuseinterpreter, Image - 11/24/2022 [facility] [address] [place] [address] Mammography Report Signed Patient: Jeaneth Youssef MMR#: [id number] : 1965Acct:[id number] Age/Sex: 57 / FADM Date: 11/23/22 Loc: HO.MAMMO Attending Dr: Mirella SHETHP Ordering Physician: Mirella Morales FNPResults: 2Benig n Findings Date of Service: 11/23/22Follow Up: 1 Year From Orig inal Mammogram Procedure(s): MM tomosynthesis screening BI Accession Number(s): [id number] cc: Mirella Morales VEGETABLE COOK EXAMINATION: MM SCREENING DIGITAL BREAST TOMOSYNTHESIS, BILATERAL CLINICAL INFORMATION: Screening. Asymptomatic. The lifetime risk of breast cancer based on the Tyrer-Cuzick Model is 5%. COMPARISON: Mammography: 11/17/2021, 07/18/2018, 07/10/2017, 05/12/2016 TECHNIQUE: Digital breast tomosynthesis is performed in both the craniocaudal and mediolateral oblique views along with computer-aided detection (CAD). Synthesized 2D images are generated from the tomosynthesis. FINDINGS: There are scattered areas of fibroglandular density (ACR BI-RADS breast composition Category b). Parenchymal pattern is similar to prior studies and there is no developing density or interval mass or architectural abnormality. No abnormal calcifications. The macrolobulated smooth nodule posterior 6:00 right breast is stable. Smaller oval satellite nodule central 6:00 right breast appears decreased. The axilla and skin contours are unremarkable. No significant changes. MM/MM tomosynthesis screening BI IMPRESSION: No significant changes from prior exams. ASSESSMENT: BI-RADS 2: Benign RECOMMENDATION: Routine annual mammography screening. This patient's information was entered into a reminder system with a target due date for their next mammogram. Dictated By: Deion Vann MD Signed By: <Electronically signed by Deion Vann MD in OV> 11/24/22 1414 DD/ 1135 TD/TT: Credentials Specialist: PEREZ [facility] External Provider IMG BI PROCEDURES Final Result documented in this encounter Visit Diagnoses Not on filedocumented in this encounter Care Teams Corn Breeder Relationship Specialty Start Date End Date Mirella Morales FNP [address] [place] [address] PCP - General Family Medicine 06/11/21 documented as of this encounter
--- OUTSIDE RECORDS SUMMARY | 2025-05-07 11:28 | XMS_ITS | Encounter Summary ---
Author Organization [employer] Address [address] [facility] 7t [place] [address] Care Team Providers Care Highway Maintenance Crew Worker Name Role Phone Mirella Morales Primary Care Provider [phone] Encounter Details Date Type Department Care Team ([facility] st Contact Info) Description 10/11/2022 Orders Only [facility] MED & PEDS [address] [place] [address] Antonia Paz LPN Social History Tobacco Use [...] on filedocumented in this encounter Care Teams Highway Maintenance Crew Worker Relationship Specialty Start Date End Date Mirella Morales FNP [address] [place] [address] PCP - General Family Medicine 06/11/21 documented as of this encounter
--- OUTSIDE RECORDS SUMMARY | 2025-05-07 11:28 | XMS_ITS | Encounter Summary ---
Author Organization [employer] Address [address] [facility] 7t [place] [address] Care Team Providers Care Conveyor System Operator Name Role Phone Mirella Morales Primary Care Provider [phone] Reason for Visit * Reason Onset Date Comments CHART PREP 05/06/2025 Encounter Details Date Type Department Care Team (Late st Contact Info) Description 05/06/2025 Telephone [facility] MEDICINE [address] [place] [address] Mirella Morales FNP [address] [place], [place] [phone] CHART PREP Social History Tobacco Use Types Packs/Day Years [...] AM EDT documented as of this encounter Miscellaneous Notes * Telephone Encounter - Daniel Pina [place] - 05/06/2025 4:09 PM EDT Chart Prep Labs: done Images: done Mammo 03/07/25 Referrals: not applicable Vaccines due: Flu and Zoster Screenings: colonoscopy Overdue care gaps: Oral health screening documented in this encounter Plan of Treatment Not on file documented as of this encounter Visit Diagnoses Not on filedocumented in this encounter Additional Health Concerns Assessment Noted Time PHQ-9 Depression Total Score: 13 025 11:17 AM EDT documented as of this encounter Care Teams Conveyor System Operator Relationship Specialty Start Date End Date Mirella Morales FNP [address] [place] [address] PCP - General Family Medicine 06/11/21 documented as of this encounter
--- OUTSIDE RECORDS SUMMARY | 2025-05-07 11:28 | XMS_ITS | Encounter Summary ---
Author Organization [employer] Address [address] [facility] 7t [place] [address] Care Team Providers Care Auricular Therapist Name Role Phone Mirella Morales Primary Care Provider [phone] Encounter Details Date Type Department Care Team ([facility] st Contact Info) Description 08/24/2022 Orders Only [facility] MED & PEDS [address] [place] [address] Antonia Paz LPN Social History Tobacco Use [...] on filedocumented in this encounter Care Teams Auricular Therapist Relationship Specialty Start Date End Date Mirella Morales FNP [address] [place] [address] PCP - General Family Medicine 06/11/21 documented as of this encounter
== END 2025-05-07 09:41 | disposition home or self-care (01) ==
LOC: HO.HHCX 09:40
PROVIDERS: PCP Registered Nurse; Visit Provider Registered Nurse
DX: M25.512 Pain in left shoulder (principal); G89.29 Other chronic pain
CPT/HCPCS: 73030

== ENCOUNTER → 2025-05-07 09:43 | Outpatient (BNV) | payer MEDICAID, SELFPAY | PROVIDERS: PCP Registered Nurse; Visit Provider Radiology Diagnostic Radiology | DX: M25.512 Pain in left shoulder (principal) | CPT/HCPCS: 73030 ==

== ENCOUNTER 2025-05-26 09:11 | Outpatient (AMB) | payer MEDICAID, SELFPAY ==
[2025-05-26 09:12] VITALS: BP 110/62; PULSE 76; O2SAT 97; BMI 24.1
--- NOTE | 2025-05-26 09:12 | MHC.OFFVIS ---
Vital Signs 05/26/25 09:12 Height 5 ft 3 in Weight 136 lb BMI 24.1 BP 110/62 Blood Pressure Location Lt brachial Position Sitting Pulse 76 Pulse Source Pulse Oximeter Pulse Oximetry (%) 97 Oxygen Delivery Method Room Air Intake Visit Reasons: Asthma Dean Of Student Services Required: Yes Dean Of Student Services Name: Antonia Parker AparnaElieser Allergies No Known Allergies Allergy (Verified 05/26/25 09:16) HPI HPI Asthma: Details: 59-year-old lady, lifetime nonsmoker, with significant secondhand smoke exposure followed for asthma/COPD overlap syndrome with moderate persistent asthma. She continues on Advair and Spiriva Respimat with reasonable control of her symptoms. She complains of intermittent dyspnea on exertion. She denies underlying family history of lung disease. 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 She denies recent exacerbations. [facility] Social History Household Members: Spouse Alcohol intake: never Patient Tobacco Use Status: Never used Tobacco Review of Systems Const Denies daytime sleepiness, Denies excessive sweating, Denies fatigue, Denies fever(s), Denies lethargy, Denies malaise, Denies night sweats, Denies snoring and Denies weight loss Eyes Denies blurry vision and Denies itchy eyes ENT Denies nasal congestion, Denies post nasal drip, Denies sinus pain, Denies sinus pressure and Denies other ( Thrush) Card Denies chest pain, Denies pedal edema, Denies dyspnea, Denies orthopnea and Denies paroxysmal nocturnal dyspnea Resp Denies cough, Denies hemoptysis, Denies excessive phlegm production, Denies dyspnea, Denies snoring and Denies wheezing GI Denies abdominal pain and Denies heartburn Musc Denies myalgias, Denies arthralgias and Denies joint swelling Skin/Breast Denies rash Neuro Denies memory loss and Denies seizure-like activity Psych Denies abnormal sleep pattern, Denies anxiety and Denies memory loss Endo Denies excessive sweating, Denies fatigue and Denies heat intolerance Xavier/Lymph Denies easy bruising Aller/Immun Denies itchy eyes, Denies seasonal rhinorrhea and Denies wheezing Physical Exam Vital Signs: Last Vital Signs Pulse 76 05/26/25 09:12 BP 110/62 05/26/25 09:12 Pulse Ox 97 05/26/25 09:12 Oxygen Delivery Method Room Air 05/26/25 09:12 BMI result Body Mass Index 24.1 Const General: no acute distress and alert Nutritional Appearance: not obese Orientation/consciousness: Other orientation findings ( oriented) HEENT Head: Yes atraumatic Eyes General: appearance normal, both eyes and all related structures Sclerae: sclerae normal EOM: EOMs intact bilaterally Neck Neck: Yes supple Lymphatic: no lymphadenopathy noted Resp Effort & Inspection: normal respiratory effort and no use of accessory muscles Auscultation: clear to auscultation bilaterally Cardio Rate: regular rate Rhythm: regular rhythm Heart sounds: no gallops, no murmurs and no rubs Skin General skin exam: other ( warm) Extrem General: No clubbing, No cyanosis and No edema Assessment & Plan Assessment & Plan (1) Asthma-COPD overlap syndrome: Code(s): J44.89 - Other specified chronic obstructive pulmonary disease Category: Medical Plan: Well controlled on current regimen of Advair, Spiriva, and albuterol MDI/nebs. Continue current regimen. Coding Level of Care Code Est Pt Level 3 (01187) Diagnoses Asthma-COPD overlap syndrome J44.89
--- OUTSIDE RECORDS SUMMARY | 2025-05-26 10:19 | XMS_ITS | Encounter Summary ---
Demographics Address [address] [facility] [address] [place] [address] Mobile Phone Home Phone Preferred Language es Marital Status Gnosticist Affiliation Unknown Race Other Race Ethnic Group Unknown Author Organization [employer] Address [address] [facility] 7t [place] [address] Care Team Providers Care Sales Director Name Role Phone Mirella Morales Primary Care Provider [phone] Reason for Referral * Consultation (Routine) - Closed Specialty Diagnoses / Procedures Referred By Stan yi Referred To Contact Physical Therapy Diagnoses Chronic left shoulder pain Mirella Morales FNP [address] [place] [address] Phone: tel: fax: [facility] Referral ID Status Reason Start Date Expiration Date V isits Requested Visits Authorized [id number] Closed Specialty Services Required 05/22/2025 05/22/2026 1 1 Scheduling Instructions Please refer to [facility] Reason for Visit * Reason Onset Date Comments Results 05/16/2025 Encounter Details Date Type Department Care Team ([facility] st Contact Info) Description 05/16/2025 Results Follow-Up [facility] [address] [place] [address] Mirella Morales FNP [address] [place] [address] XR Shoulder 2+ Views Left Social History Tobacco Use Types Packs/Day Years [...] AM EDT documented as of this encounter Progress Notes * TRISTEN Siddiqui - 05/22/2025 6:38 AM EDT Referral to physical therapy with [facility] submitted. documented in this encounter Miscellaneous Notes * Telephone Encounter - Janneth Duggan RN - 05/19/2025 10:46 AM EDT TC placed to pt via [employer] technical publications manager (ID#[id number]) to inform and advise of below PCP message. Advised pt per PCP, XRAY left shoulder did not show sign of fracture, dislocation, or arthritis. Advised per PCP. discussed possible physical therapy referral during the visit, but she wanted to wait first forimaging results. Advised PCP still thinks physical therapy would be beneficial for her based on these results. Pt interested in physical therapy but would like for it to be in [place] as they do not have a car. Advised message to be sent to PCP. Pt reports they have pain in their arm Pt reports they spoke to PCP about pain already and are on medication for the pain. Pt verbalized understanding and denies questions at this time. ----- Message from Mirella Morales sent at 05/16/2025 8:39 AM EDT ----- Please call to let her know the good news that Xray left shoulder did not show sign of fracture, dislocation, or arthritis. We discussed possible physical therapy referral during the visit, but she wanted to wait first for imaging results. I still think physical therapy would be beneficial for her based on these results, please let me know if she is in agreement and I will place referral. Thank you! ----- Message ----- From: Shelbi Ris Results In Sent: 05/07/2025 10:06 AM EDT To: TRISTEN Siddiqui documented in this encounter Plan of Treatment Scheduled Referrals Name Type Priority Associated Diagnoses Orde r Schedule Referral to Physical Therapy Outpatient Referral Routine Chronic left shoulder pain Expected: 05/22/2025 (Approximate), Expires: 05/22/2026 documented as of this encounter Visit Diagnoses Diagnosis Chronic left shoulder pain- Primary Pain in joint, shoulder region documented in this encounter Additional Health Concerns Assessment Noted Time PHQ-9 Depression Total Score: 13 025 11:17 AM EDT documented as of this encounter Care Teams Sales Director Relationship Specialty Start Date End Date Mirella Morales FNP [address] [place] [address] PCP - General Family Medicine 06/11/21 documented as of this encounter
--- OUTSIDE RECORDS SUMMARY | 2025-05-26 10:19 | XMS_ITS | Clinical Summary ---
Demographics Address [address] [facility] [address] [place] [address] Mobile Phone Home Phone Preferred Language es Marital Status Evangelical Affiliation Unknown Race Other Race Ethnic Group Unknown Author Organization [employer] Address [address] [facility] 7t [place] [address] Care Team Providers Care Airport Control Operator Name Role Phone Mirella Morales TRISTEN Primary Care Provider Allergies No known active allergies Medications traZODone [...] MCG inhalation capsuleIndicati ons:Asthma-COPD overlap syndrome (CMS/HCC) ([facility]) Place 1 capsule (18 mcg) into inhaler and inhale in the morning. 90 capsule 3 05/01/20 24 Active cholecalciferol (Vitamin D High Potency) 25 MCG (1000 UT) capsule Take 1 capsule (25 mcg) by mouth Once per day. 90 capsule 3 08/19/20 24 Active albuterol 108 (90 Base) MCG/ACT inhalerIndicati ons:Asthma-COPD overlap syndrome (CMS/HCC) ([facility]) Inhale 2 puffs every 4 (four) hours [...] Active albuterol (2.5 MG/3ML) 0.083% nebulizer solutionIndicat ions:Asthma-MIXED ANIMAL VETERINARIAN D overlap syndrome (CMS/HCC) (HCC) INHALE 1 AMPULE USING A NEBULIZER EVERY [...] SWALLOW 12 g 11 05/07/20 25 Active D3-1000 25 MCG (1000 UT) capsule TAKE 1 CAPSULE BY MOUTH EVERY DAY IN THE MORNING 90 capsule 1 08/19/20 24 025 Discontinued(Du plicate order (will not trigger notification to Pharmacy)) Advair HFA 230-21 MCG/ACT inhaler INHALE 2 PUFFS BY MOUTH TWICE DAILY IN THE MORNING AND AT BEDTIME, RINSE MOUTH AFTER USING. DO NOT SWALLOW 12 g 11 02/21/20 25 025 Discontinued(Re order (will not trigger notification to Pharmacy)) Active Problems Problem Noted Date Diagnosed Date Healthcare maintenance 01/03/2024 Overview (05/07/2025): Pap: Last [...] referral placed October 2021 Asthma-COPD overlap syndrome (CMS/HCC) 2 Overview (05/05/2024): Followed by [facility]m - Dr. Egan Exacerbation: 03/07/24 Treatment regimen: Advair 230-21 mcg/act, 2 puffs BID Spiriva 18 mcg daily Controller: Albuterol PRN Previous medications: -Trelegy (DC d/t insurance coverage) Assessment & Plan (05/07/2025 4:57 PM EDT): -DME request for neb machine: 09/04/24 -Pending review of PFT and CXR with specialist -Reports well controlled with current regimen -Continues as above Assessment & Plan (09/04/2024 9:37 AM EST): [...] recommended f/up with primary provider to discuss retirement control of her COPD. Assessment & Plan (01/06/2024 4:57 PM EDT): - Not well controlled - Pt last seen in 2017 by [facility], referral to re-establish care - Reports 1-2 exacerbations in the past year requiring prednisone, and becomes SOB after walking up one flight of stairs. - Given severity/persistence of symptoms on ICS/LABA/KATIE combination, will increase therapy to ICS/LABA/LAMA Plan: -STOP Pulmicort -STOP Combivent -START Trelegy -May use albuterol PRN Insomnia 04/17/2012 Resolved Problems Problem Noted Date Diagnosed Date Resolved Date Numbness and tingling of both legs 03/02/2025 05/07/2025 Assessment & Plan (03/02/2025 4:36 PM EDT): [...] vs EMG/NCS - Follow up precautions reviewed Asthma 04/17/2012 05/01/2024 Encounters Date Type Department Care Team Description 05/24/2025 Refill [facility] [address] [place] [address] Mirella Morales FNP Pain 05/16/2025 Results Follow-Up [facility] [address] [place], [place] [phone] Mirella Morales FNP XR Shoulder 2+ Views Left 05/07/2025 9:00 AM EDT Office Visit [facility] [address] [place], [place] [phone] Mirella Morales FNP Chronic left shoulder pain (Primary Dx); Healthcare maintenance; Pain in both lower extremities; Asthma-COPD overlap syndrome (CMS/HCC) 05/07/2025 Travel 05/06/2025 Telephone [facility] [address] [place] [phone] Mirella Morales FNP CHART PREP 03/28/2025 Refill [facility] [address] [place] [address] Mirella Morales, RELEASE ENGINEER 03/18/2025 Telephone [facility] [address] [place] [phone] Mirella Morales, RELEASE ENGINEER Cologuard Kit 03/18/2025 Refill [facility] [address] [place] [phone] Mirella Morales, RELEASE ENGINEER Asthma-COPD overlap syndrome (CMS/HCC) 03/16/2025 Refill [facility] [address] [place] [phone] Mirella Morales, RELEASE ENGINEER Seasonal allergies 03/07/2025 Orders Only [facility] [address] [place] [address] Mirella Morales RELEASE ENGINEER 03/07/2025 Refill [facility] [address] [place] [address] Mirella Morales, RELEASE ENGINEER Pain 02/26/2025 10:30 AM EDT Office Visit [facility] [address] [place] [phone] Mirella Morales, RELEASE ENGINEER Numbness and tingling of both legs (Primary Dx); Screening for colon cancer; Healthcare maintenance 02/26/2025 Travel 02/25/2025 Telephone [facility] [address] [place] [address] Mirella Morales, RELEASE ENGINEER CHART PREP from Last 3 Months Immunizations Immunization Administration [...] Disability Screening 02/26/2026 02/26/2025 Mammogram 03/07/2026 03/07/2025, 05/2 10/2023, 11/23/2022, Additional history exists Tobacco Screening 05/07/2026 [...] AM EDT Narrative 05/07/2025 10:05 AM EDT [address] [address] XRay Report Signed Patient: Jeaneth Youssef MR#: [id number] : 1965 Acct:[id number] Age/Sex: 59 / F ADM Date: 05/07/25 Loc: .HHCX Attending Dr: Mirella RAMON Ordering Physician: Mirella Morales Date of Service: 05/07/25 Procedure(s): XR shoulder LT min 2V Accession Number(s): [id number] cc: Mirella Morales Reason for Exam: PAIN [...] Castorena MD in OV> 05/07/25 1002 DD/ 6 TD/TT: 05/07/25957 Concrete Conveyor Operator: Procedure Note Donotuseinterpreter, Image - 05/07/[address] [address] XRay Report Signed Patient: Jeaneth Youssef MMR#: [id number] : 1965Acct:[id number] Age/Sex: 59 / FADM Date: 05/07/25 Loc: .HHCX Attending Dr: Mirella Morales RELEASE ENGINEER Ordering Physician: Mirella Morales Date of Service: 05/07/25 Procedure(s): XR shoulder LT min 2V Accession Number(s): [id number] cc: Mirella Morales Reason for Exam: PAIN [...] Castorena MD in OV> 05/07/25 1002 DD/ 6 TD/TT: 05/07/25957 Concrete Conveyor Operator: Mirella RAMON IMG XR PROCEDURES Edited Resul t - Final * Vitamin B12/Folate, Serum Panel (03/20/2025 8:46 AM EDT) Vitamin B12 392 200 - 900 pg/mL [facility] Comment:NORMAL 200-900 PG/ML INDETERMINATE 160-199 PG/ML DEFICIENT < 160 PG/ML Folate 12.3 > or = 4.0 ng/mL [facility] Comment:Reference Values:> o r = 4.0 ng/mL< 4.0 ng/mL suggests folate deficiency Methotrexate, aminopterin and folinic acid(leucovorin) are chemotherapeutic agents whose molecularstructures are similar to folate; therefore, the Architectfolate assay cannot be used for patients using these drugs. Blood Venous blood specimen / Unknown 03/20/2025 8:46 AM EDT 03/20/2025 10:54 AM EDT Mirella Morales RELEASE ENGINEER LAB BLOOD ORDERABLES Final Res ult Performing Organization Address [facility]/ZIP Co de Phone Number [facility] [address] [place] [phone] * TSH W/Reflex to FT4 (03/20/2025 8:46 AM EDT) Pathologist [facility] TSH reflex Free T4 1.64 0.32 - 4.0 uIU/mL [facility] Blood Venous blood specimen / Unknown 03/20/2025 8:46 AM EDT 03/20/2025 10:54 AM EDT Mirella Orlandomackenzie RELEASE ENGINEER LAB BLOOD ORDERABLES Final Res ult [facility] [address] [place] [phone] * Magnesium (03/20/2025 8:46 AM EDT) Magnesium 2.1 1.6 - 2.6 mg/dL [facility] Blood Venous blood specimen / Unknown 03/20/2025 8:46 AM EDT 03/20/2025 10:54 AM EDT Mirella Morales [facility] LAB BLOOD ORDERABLES Final Res ult Performing Organization Address [facility] Co de Phone Number [facility] [address] [place] [phone] * Hemoglobin A1c (03/20/2025 8:46 AM EDT) Hemoglobin A1c 5.0 <6.0 % [facility] Comment:Hemoglobin A1C Refer ence Range Adults: 4.8 - 6.0 % Non diabetic: < 6.0 % Goal: < 7.0 %Additional Action Suggested: > 8.0 %Note: Hemoglobin A1c results are invalid for patients with abnormal amounts of HbF. Blood transfusions may impact the HbA1c concentration in the patient sample. Estimated Average Glucose 97 mg/dL [facility] Comment:eAG = Estimated ave rage glucose which is %A1C expressed asaverage glucose, using the formula of the T6W-UqivwvaZetpuam Glucose study (ADAG), Diabetes Care, Vol.31,#8,Mar. 2007 Blood Venous blood specimen / Unknown 03/20/2025 8:46 AM EDT 03/20/2025 10:54 AM EDT Mirella Morales [facility] LAB BLOOD ORDERABLES Final Res ult Performing Organization Address [facility] Co de Phone Number [facility] [address] [place] [phone] * (ABNORMAL) Lipid Panel, Standard (03/20/2025 8:46 AM EDT) Triglycerides 83 <150 mg/dL [facility] Comment:Desirable Triglyceri de: less than 150 mg/dLBorderline High Triglyceride 150-199 mg/dLHigh Triglyceride: 200-499 mg/dLVery High Triglyceride: greater than or equal to 5OO mg/dL Cholesterol 135 <200 mg/dL [facility] Comment:Desirable Cholestero l: less than 200 mg/dLBorderline High Cholesterol: 200-239 mg/dLHigh Cholesterol: greater than 239 mg/dL LDL Cholesterol Calculated 79 <100 mg/dL [facility] Comment:Desirable LDL: less than 100 mg/dLNear Optimal/Above Optimal LDL: 110- 129 mg/dLBorderline High LDL: 130-159 mg/dLHigh LDL: 160-189 mg/dLVery High LDL: greater than or equal to 190 mg/dL HDL Cholesterol 40(L) >40 mg/dL [facility] Comment:Desirable HDL: great er than 40 mg/dL Note: This HDL assay may give artificially low results in patients with liver disease. Blood Venous blood specimen / Unknown 03/20/2025 8:46 AM EDT 03/20/2025 10:54 AM EDT us Mirella Morales RELEASE ENGINEER LAB BLOOD ORDERABLES Final Res ult [facility] [address] [place] [phone] * (ABNORMAL) Basic Metabolic Panel (03/20/2025 8:46 AM EDT) Sodium 142 135 - 145 mmol/L [facility] Potassium 4.1 3.3 - 5.1 mmol/L [facility] Comment:Slight Hemolysis.Int erpret result with caution. Chloride 108 96 - 108 mmol/L [facility] Carbon Dioxide 27 22 - 29 mmol/L [facility] Anion Gap 11(L) 12 - 20 [facility] Urea Nitrogen (BUN) 11 9 - 16 mg/dL [facility] Creatinine, Serum 0.77 0.5 - 1.4 mg/dL [facility] Estimated Glomerular Filt Rate >60 [facility] Comment:Chronic Kidney Disea se: Estimated GFR < 60 mL/min/1.91f8Areyot Kidney Disease: Estimated GFR < 15 mL/min/1.73m2 Glucose 89 60 - 115 mg/dL [facility] Calcium 9.2 8.4 - 10.2 mg/dL [facility] Blood Venous blood specimen / Unknown 03/20/2025 8:46 AM EDT 03/20/2025 10:54 AM EDT us Mirella Morales RELEASE ENGINEER LAB BLOOD ORDERABLES Final Res ult [facility] [address] [place] [phone] * BI Mammogram Screening Tomosynthesis Bilateral (03/07/2025 11:15 AM EDT) Anatomical Region Laterality Modality Breast Bilateral Mammography 03/07/2025 11:1 5 AM EDT Narrative 03/17/2025 4:44 PM EDT [address] [place] [address] Mammography Report Signed Patient: Jeaneth Youssef MR#: [id number] : 1965 Acct:[id number] Age/Sex: 59 / F ADM Date: 03/07/25 Loc: HO.MAMMO Attending Dr: Mirella Morales RELEASE ENGINEER Ordering Physician: Mirella Morales Results: 2Benig n Findings Date of Service: 03/07/25 Follow Up: 1 Year From Orig ina Mammogram Procedure(s): MM tomosynthesis screening BI Accession Number(s): [id number] cc: Mirella Morales EXAMINATION: MM SCREENING DIGITAL BREAST TOMOSYNTHESIS, BILATERAL [...] 03/17/25 1640 DD/ 1115 TD/TT: 03/07/25 1132 Concrete Conveyor Operator: Procedure Note Donotuseinterpreter, Image - [facility]/17/[facility] [address] [place] [address] Mammography Report Signed Patient: Jeaneth Youssef MMR#: [id number] : 1965Acct:[id number] Age/Sex: 59 / FADM Date: 03/07/25 Loc: HO.MAMMO Attending Dr: Mirella Morales RELEASE ENGINEER Ordering Physician: Mirella Morales FNPResults: 2Benig n Findings Date of Service: 03/07/25Follow Up: 1 Year From Orig inal Mammogram Procedure(s): MM tomosynthesis screening BI Accession Number(s): [id number] cc: Mirella Morales RELEASE ENGINEER EXAMINATION: MM SCREENING DIGITAL BREAST TOMOSYNTHESIS, BILATERAL [...] Park Flynn DO 03/17/2025 04:40 PM EDT RP Dictated By: Park Flynn DO Signed By: <Electronically signed by Park Flynn DO in OV> 03/17/25 1640 DD/ 1115 TD/TT: 03/07/25 1132 Concrete Conveyor Operator: us Mirella Orlandomackenzie RELEASE ENGINEER IMG BI PROCEDURES Final Result * ThinPrep Imaging Pap and HPV mRNA E6/E7 (05/15/2024 9:47 AM EDT) HPV nRNA E6/E7 Not Detected Not Detected [facility] Comment:Methodology: Transcr iption-Mediated AmplificationThis assay detects E6/E7 viral messenger RNA (mRNA) from 14high-risk HPV types (16,18,31,33,35,39,45,51,52,56,58,59,66,68).Cervical sources are required for HPV testing.If a vaginal source from a patient who has had atotal hysterectomy with removal of cervix wassubmitted, please contact the testing laboratoryfor alternative testing options.For additional information, please refer tohttp://education.BuzzStream/faq/DEU130c0(This link if provided for information/educational purposes only.)THIS TEST WAS PERFORMED AT:[employer] [place] [phone] VILLALPANDO MD SOURCE: SEE NOTE [facility] Comment:Cervix Report Status: [facility] Clinical Information: SEE NOTE [facility] Comment:None given LMP: SEE NOTE [facility] Comment:NONE GIVEN Prev. PAP: SEE NOTE [facility] Comment:NONE GIVEN Prev. BX: SEE NOTE [facility] Comment:NONE GIVEN Statement Of Adequacy: SEE NOTE [facility] Comment:Satisfactory for joaquin luation.Endocervical/transformation zone componentpresent. General Categorization: [facility] Interpretation/Result: SEE NOTE [facility] Comment:Cytology Results: Ne gative for intraepitheliallesion or malignancy. Cytology Comment SEE NOTE [facility] Comment:This Pap test has be en evaluated with computerassisted technology. Certified Master Safecracker: SEE NOTE [facility] Comment:YP, CT(ASCP)CT papa ringg location: [place] [address] Review Certified Master Safecracker: [facility] Pathologist [facility] PAP Infection [facility] See Note SEE NOTE [facility] Comment:EXPLANATORY NOTE:The Pap is a screening test for cervical cancer. It isnot a diagnostic test and is subject to false negativeand false positive results. It is most reliable when asatisfactory sample, regularly obtained, is submittedwith relevant clinical findings and history, and whenthe Pap result is evaluated along with historic andcurrent clinical information. 05/15/2024 9:47 AM EDT 05/15/2024 6:39 PM EDT Narrative [facility] - 05/21/2024 12:09 PM EDT SEE SCANNED RESULTS IN EMRCERVIX us Nely FONTANEZ LAB PATHOLOGY ORDERABLES Final Result [facility] [address] [place] [phone] * HEPATITIS C AB W/REFL TO HCV RNA, QN, PCR (01/07/2022 9:36 AM EDT) HEPATITIS C ANTIBODY NON-REACT MAC NON-REACT MAC [facility] INDEX 0.06 <1.00 [facility] Comment: HCV antibody was non-reactive. There is no laboratory evidence of HCV infection. In most cases, no further action is required. However, if recent HCV exposure is suspected, a test for HCV RNA (test code 05574) is suggested. For additional information please refer to http://education.BuzzStream/faq/NFC71r4 (This link is being provided for informational/ educational purposes only.) 01/07/2022 9:36 AM EDT us Mirella Morales RELEASE ENGINEER HISTORICAL/NON ORDERABLE LABS Final Result Performing Organization Address [facility] de Phone Number [facility] [address] * HIV 1/2 ANTIGEN/ANTIBODY,FOURTH GENERATION W/RFL (01/07/2022 9:36 AM EDT) HIV-1/2 ANTIGEN AND ANTIBODIES, 4TH GENERATION W/ REFLEX NON-REACT MAC NON-REACT MAC [facility] Comment: HIV-1 antigen and HIV-1/HIV-2 [...] purpose. For additional information please refer to http://education.BuzzStream/faq/IHL994 (This link is being provided for informational/ educational purposes only.) The performance of this assay has not been clinically validated in patients less than 2 years old. 01/07/2022 9:3 6 AM EDT Mirella Morales [facility] LAB BLOOD ORDERABLES Final Res ult Performing Organization Address [facility] de Phone Number [facility] [address] from Last 3 Months or Most Recently Relevant to Health Maintenance Insurance [facility] [employer] Care Teams Airport Control Operator Relationship Specialty Start Date End Date Mirella Morales FNP [address] [place] [phone] PCP - General Family Medicine 06/11/21
--- OUTSIDE RECORDS SUMMARY | 2025-05-26 10:19 | XMS_ITS | Encounter Summary ---
Author Organization [employer] Address [address] [facility] 7t [place] [address] Care Team Providers Care Credit And Loan Collections Supervisor Name Role Phone Mirella Morales Primary Care Provider [phone] Encounter Details Date Type Department Care Team ([facility] st Contact Info) Description 08/24/2022 Orders Only [facility] [address] [place] [address] Antonia Paz LPN Social History Tobacco Use [...] on filedocumented in this encounter Care Teams Credit And Loan Collections Supervisor Relationship Specialty Start Date End Date Mirella Morales FNP [address] [place] [address] PCP - General Family Medicine 06/11/21 documented as of this encounter
--- OUTSIDE RECORDS SUMMARY | 2025-05-26 10:19 | XMS_ITS | Encounter Summary ---
Author Organization [employer] Address [address] [facility] 7t [place] [address] Care Team Providers Care District Court Bailiff Name Role Phone Mirella Morales Primary Care Provider [phone] Encounter Details Date Type Department Care Team ([facility] st Contact Info) Description 01/02/2023 Abstract [facility] MEDICINE [address] [place] [address] Mirella Morales FNP [address] [place], [place] [phone] Social History Tobacco Use Types Packs/Day Years [...] on filedocumented in this encounter Care Teams District Court Bailiff Relationship Specialty Start Date End Date Mirella Morales FNP [address] [place] [address] PCP - General Family Medicine 06/11/21 documented as of this encounter
--- OUTSIDE RECORDS SUMMARY | 2025-05-26 10:19 | XMS_ITS | Encounter Summary ---
Author Organization [employer] Address [address] [facility] 7t [place] [address] Care Team Providers Care Regional Transportation Manager Name Role Phone Mirella Morales Primary Care Provider [phone] Reason for Visit * Reason Comments Med Refill Encounter Details Date Type Department Care Team ([facility] st Contact Info) Description 06/06/2023 Refill [facility] MEDICINE [address] [place] [address] Mirella Morales FNP [address] [place], [place] [phone] Social History Tobacco Use Types Packs/Day Years [...] on filedocumented in this encounter Care Teams Regional Transportation Manager Relationship Specialty Start Date End Date Mirella Morales FNP [address] [place] [address] PCP - General Family Medicine 06/11/21 documented as of this encounter
--- OUTSIDE RECORDS SUMMARY | 2025-05-26 10:19 | XMS_ITS | Encounter Summary ---
Author Organization [employer] Address [address] [facility] 7t [place] [address] Care Team Providers Care Primer Charger Name Role Phone Mirella Morales Primary Care Provider [phone] Reason for Visit * Reason Comments Med Refill Encounter Details Date Type Department Care Team ([facility] st Contact Info) Description 05/24/2025 Refill [facility] MEDICINE [address] [place] [address] Mirella Morales FNP [address] [place], [place] [phone] Pain Social History Tobacco Use Types Packs/Day Years [...] as of this encounter Visit Diagnoses Diagnosis Pain Generalized pain documented in this encounter Additional Health Concerns Assessment Noted Time PHQ-9 Depression Total Score: 13 025 11:17 AM EDT documented as of this encounter Care Teams Primer Charger Relationship Specialty Start Date End Date Mirella Morales FNP [address] [place] [address] PCP - General Family Medicine 06/11/21 documented as of this encounter
--- OUTSIDE RECORDS SUMMARY | 2025-05-26 10:19 | XMS_ITS | Encounter Summary ---
Author Organization [employer] Address [address] [facility] 7t [place] [address] Care Team Providers Care Chiropractic Teacher Name Role Phone Mirella Morales Primary Care Provider [phone] Encounter Details Date Type Department Care Team ([facility] st Contact Info) Description 10/11/2022 Orders Only [facility] MED & PEDS [address] [place] [address] Antonia Paz LPN Social History Tobacco Use [...] on filedocumented in this encounter Care Teams Chiropractic Teacher Relationship Specialty Start Date End Date Mirella Morales FNP [address] [place] [address] PCP - General Family Medicine 06/11/21 documented as of this encounter
--- OUTSIDE RECORDS SUMMARY | 2025-05-26 10:19 | XMS_ITS | Encounter Summary ---
Author Organization [employer] Address [address] [facility] [address] [place] [address] Care Team Providers Care Brick Grader Name Role Phone Mirella Morales Primary Care Provider Encounter Details Date Type Department Care Team (Late st Contact Info) Description 01/02/2023 Orders Only [facility] MED & PEDS [address] [place] [address] Antonia Paz LPN Social History Tobacco Use [...] on filedocumented in this encounter Care Teams Brick Grader Relationship Specialty Start Date End Date Mirella Morales FNP [address] [place] [address] PCP - General Family Medicine 06/11/21 documented as of this encounter
--- OUTSIDE RECORDS SUMMARY | 2025-05-26 10:19 | XMS_ITS | Encounter Summary ---
Demographics Address [address] [facility] [address] [place] [address] Mobile Phone Home Phone Preferred Language es Marital Status Samaritan Affiliation Unknown Race Other Race Ethnic Group Unknown Author Organization [employer] Address [address] [facility] [address] [place] [address] Care Team Providers Care Distributor Publications Name Role Phone Mirella Morales DISTILLATION OPERATOR HELPER Primary Care Provider [phone] Encounter Details Date Type Department Care Team (Late st Contact Info) Description 11/21/2022 Orders Only [facility] CHC MED & PEDS [address] [place] [address] Antonia Paz LPN Social History Tobacco Use [...] AM EDT Narrative 11/24/2022 2:16 PM EDT [facility] [place] [address] Mammography Report Signed Patient: Jeaneth Youssef MR#: [id number] : 1965 Acct:[id number] Age/Sex: 57 / F ADM Date: 11/23/22 Loc: HO.MAMMO Attending Dr: Mirella Morales DISTILLATION OPERATOR HELPER Ordering Physician: Mirella Morales Results: 2Benig n Findings Date of Service: 11/23/22 Follow Up: 1 Year From Orig inal Mammogram Procedure(s): MM tomosynthesis screening BI Accession Number(s): [id number] cc: Mirella Morales DISTILLATION OPERATOR HELPER EXAMINATION: MM SCREENING DIGITAL BREAST TOMOSYNTHESIS, BILATERAL [...] in OV> 11/24/22 1414 DD/ 1135 TD/TT: Underground Miner: PEREZ Procedure Note Donotuseinterpreter, Image - 11/24/2022 [facility] [address] [place] [address] Mammography Report Signed Patient: Jeaneth Youssef MMR#: [id number] : 1965Acct:[id number] Age/Sex: 57 / FADM Date: 11/23/22 Loc: HO.MAMMO Attending Dr: Mirella SHETHP Ordering Physician: Mirella Morales FNPResults: 2Benig n Findings Date of Service: 11/23/22Follow Up: 1 Year From Orig inal Mammogram Procedure(s): MM tomosynthesis screening BI Accession Number(s): [id number] cc: Mirella Morales DISTILLATION OPERATOR HELPER EXAMINATION: MM SCREENING DIGITAL BREAST TOMOSYNTHESIS, BILATERAL [...] in OV> 11/24/22 1414 DD/ 1135 TD/TT: Underground Miner: PEREZ [facility] External Provider IMG BI PROCEDURES Final Result documented in this encounter Visit Diagnoses Not on filedocumented in this encounter Care Teams Distributor Publications Relationship Specialty Start Date End Date Mirella Morales FNP [address] [place] [address] PCP - General Family Medicine 06/11/21 documented as of this encounter
--- OUTSIDE RECORDS SUMMARY | 2025-05-26 10:20 | XMS_ITS | Encounter Summary ---
Author Organization [employer] Address [address] [facility] 7[address] [place] [address] Care Team Providers Care It Instructor Name Role Phone Mirella Morales Primary Care Provider [phone] Reason for Visit * Reason Comments Med Refill Encounter Details Date Type Department Care Team (Late st Contact Info) Description 03/15/2024 Refill [facility] [address] [place], [place] [phone] Jeremiah Cox MD [address] [place], [place] [phone] COPD with acute exacerbation (CMS/HCC) Social History [...] Diagnoses Diagnosis COPD with acute exacerbation (CMS/HCC) (HCC) documented in this encounter Additional Health Concerns Assessment Noted Time PHQ-9 Depression Total Score: 8 01/03/20 24 12:18 PM EDT documented as of this encounter Care Teams It Instructor Relationship Specialty Start Date End Date Mirella Morales FNP [address] [place] [address] PCP - General Family Medicine 06/11/21 documented as of this encounter
== END 2025-05-26 09:23 | disposition home or self-care (01) ==
PROVIDERS: PCP Registered Nurse; Visit Provider Internal Medicine Pulmonary Disease
DX: J44.89 Other specified chronic obstructive pulmonary disease (principal)
CPT/HCPCS: 99213

== ENCOUNTER → 2025-05-26 09:11 | Outpatient (BNVA) | payer MEDICAID, SELFPAY | PROVIDERS: PCP Registered Nurse; Visit Provider Internal Medicine Pulmonary Disease | DX: J44.89 Other specified chronic obstructive pulmonary disease (principal) | CPT/HCPCS: 99212 ==